=== PATIENT | female | born 1950 | race Caucasian/White ===

== ENCOUNTER 2018-10-31 05:46 | Inpatient (IN) ==
[2018-10-31] MEDS ORDERED: Famotidine 20 MG/2 ML VIAL IVP ONE (06:42)
[2018-10-31] MEDS ORDERED: methylPREDNISolone 125 MG/2 ML VIAL IVP ONE (06:42)
[2018-10-31 06:48] LABS: Basophils # 0.1 K/mcL (0.0-0.2); Eosinophils # 0.1 K/mcL (0.0-0.6); Eosinophils % 1.6 %; Hematocrit 45.9 % (35.3-44.9); Hemoglobin 15.2 g/dL (11.5-15.4); Immature Granulocytes % 0.9 % (0-4); Lymphocytes # 1.9 K/mcL (0.6-4.6); Lymphocytes % 24.4 %; Mean Corpuscular HGB Conc 33.1 g/dL (31.6-35.5); Mean Corpuscular Hemoglobin 26.8 pg (28.0-33.3); Mean Platelet Volume 9.7 fL (9.4-12.4); Monocytes # 0.8 K/mcL (0.0-1.3); Neutrophils # 4.8 K/mcL (1.6-8.9); Platelet Count 263 K/mcL (140-400); Red Blood Count 5.67 M/mcL (3.82-4.97); Segmented Neutrophils % 62.1 %; White Blood Count 7.7 K/mcL (4.3-11.1)
--- NOTE | 2018-10-31 06:51 | Emergency Department Note ---
Disposition Clinical Impression: Chest pain Qualifiers: Chest pain type: unspecified Qualified Code(s): R07.9 - Chest pain, unspecified Disposition: Admitted As Inpatient Condition: Good Time of Disposition: 13:12 General Adult HPI - General Chief complaint: ED Allergic Reaction Stated complaint: Hives, Chest Pressure Time Seen by Provider: 10/31/18 06:23 Source: patient Limitations: no limitations Nursing Notes Reviewed: Yes Vital Signs Reviewed: Yes - History of Present Illness HPI Narrative: Alert and oriented nontoxic appearing 68-year-old female presents with complaint of hives and chest pressure. Patient reports that hives and itching started yesterday around 4 PM she initially noticed them to her posterior head and now spread to axilla and torso. She states that the chest pressure started about an hour prior to arrival and is since resolved. She describes the pressure as a choking sensation to her mid sternal region, she also states nausea at the onset of the chest pressure that lasted about 10-15 minutes. Patient also has known hepatitis A and states that she has been continuously fatigued and has not left the house for the last 4-5 days. States that she has not tried any new foods or had any changes in soaps or detergents. Denies new medications. She denies shortness of breath, diaphoresis, difficulty swallowing, vomiting, diarrhea, fever. Onset (ago): day(s) Pain Scale: 0 Associated symptoms: Reports: malaise, nausea/vomiting, rash. Denies: conf usion, cough, diaphoresis, fever/chills, headaches, loss of appetite, seizure, shortness of breath, syncope, weakness - Related Data Home Medications Medication Instructions Recorded Confirmed Celecoxib [Celebrex] 200 mg PO DAILY 01/08/18 10/31/18 Cetirizine HCl [All Day Allergy] 10 mg PO BID PRN 01/08/18 10/31/18 Empagliflozin [Jardiance] 10 mg PO DAILY 01/08/18 10/31/18 Glimepiride [Amaryl] 2 mg PO DAILY 01/08/18 10/31/18 Insulin ASPART [Novolog Flexpen] 10 units SQ 1200 01/08/18 10/31/18 Insulin ASPART [Novolog Flexpen] 12 units SQ QAM 01/08/18 10/31/18 Insulin ASPART [Novolog Flexpen] 14 units SQ QPM 01/08/18 10/31/18 Insulin Glargine,Hum.rec.anlog 46 unit SQ HS 01/08/18 10/31/18 [Lantus Solostar] Levothyroxine [Synthroid] 75 mcg PO DAILY 01/08/18 10/31/18 Loperamide [Imodium] 2 mg PO DAILY PRN 01/08/18 10/31/18 Omeprazole [PriLOSEC] 20 mg PO DAILY 01/08/18 10/31/18 Oxybutynin Chloride [Ditropan Xl] 10 mg PO DAILY 01/08/18 10/31/18 Ranitidine HCl [Acid Manager Cardiology] 150 mg PO BID PRN 01/08/18 10/31/18 Sertraline [Zoloft] 50 mg PO DAILY 01/08/18 10/31/18 Simvastatin [Zocor] 40 mg PO DAILY 01/08/18 10/31/18 hydroCHLOROthiazide 25 mg PO DAILY 01/08/18 10/31/18 [Hydrochlorothiazide] Allergies Allergy/AdvReac Type Severity Reaction Status Date / Time metformin AdvReac Diarrhea Verified 10/31/18 06:29 Review of Systems: As Per HPI Constitutional: Reports: as per HPI. Denies: fever, chills, weakness, weight change Cardiovascular: Reports: chest pain (Midsternal chest pressure). Denies: palpitations, dyspnea on exertion Respiratory: Denies: cough, dyspnea, wheezes, hemoptysis Gastrointestinal: Denies: abdominal pain, vomiting, diarrhea Musculoskeletal: Denies: back pain, neck pain, joint swelling Integumentary: Reports: as per HPI, pruritus Allergic/Immunologic: Reports: as per HPI, urticaria. Denies: facial swelling, itchy eyes Past Medical History - Past Medical History Attestation: Yes The following information was validated with the patient. Source: patient, nursing notes reviewed Medical history: Reports: asthma, cancer, diabetes, fibromyalgia, GERD, hepatitis, hypertension, thyroid disease Surgical history: Reports: , hysterectomy, orthopedic, other Psychiatric history: Reports: anxiety BRIDGE IRONWORKER history: Reports: no BRIDGE IRONWORKER history - Social History Smoking Status: Never smoker Smokeless Tobacco Status: No Alcohol use: Reports: none Drug use: Reports: none Physical Exam - General Limitations: no limitations General appearance: alert - Head Head exam: atraumatic, normocephalic - Eye Eye exam: Present: normal appearance, EOMI. Absent: scleral icterus, conjunctival injection, periorbital swelling, periorbital tenderness - ENT ENT exam: normal exam, mucous membranes moist - Neck Neck exam: Present: normal inspection, trachea midline. Absent: meningismus - Chest Chest inspection: Present: normal inspection, symmetric chest wall rise - Respiratory Respiratory exam: Present: normal lung sounds bilaterally. Absent: respiratory distress - Cardiovascular Cardiovascular exam: Present: tachycardia, normal heart sounds - Abdominal Exam Abdominal exam: Present: tenderness (Tenderness to right upper quadrant with palpation) Abdominal tenderness: Present: RUQ - Extremities Exam Extremities exam: Present: normal inspection, full ROM. Absent: tenderness - Back Exam Back exam: Absent: tenderness - Neurological Exam Neurological exam: Present: alert, oriented X3 - Psychiatric Psychiatric exam: Present: normal affect, normal mood - Skin Skin exam: Present: warm, dry, intact, normal color Course Course Narrative: 0810: Rounded with patient and discussed her recent symptoms and explained to her that she is in a higher risk category based on her heart score. We di scussed the potential of coming into the hospitalist care and counseling cardiology. Patient agrees to coming in for admission for further testing. 0830: Spoke to Dr. Mcmahon, hospitalist, at this time she states that she would like for hepatitis viral panel to be completed before accepting the patient to hospitalist service. 1300: Dr. Mcmahon excepts patient into hospitalist service at this time. Vital Signs Temperature 98.6 F 10/31/18 06:12 Pulse Rate 110 10/31/18 06:12 Respiratory Rate 20 10/31/18 06:12 Blood Pressure 112/59 10/31/18 06:12 O2 Sat by Pulse Oximetry 96 10/31/18 06:12 Temperature 98.6 F 10/31/18 06:12 Pulse Rate 93 10/31/18 09:02 Respiratory Rate 16 10/31/18 09:02 Blood Pressure 137/62 10/31/18 09:02 O2 Sat by Pulse Oximetry 94 10/31/18 09:02 Oxygen Delivery Oxygen Delivery Room Air Medical Decision Making - Lab Data Lab results reviewed: Yes I reviewed the patient's lab results. Result diagrams: 10/31/18 06:35 10/31/18 06:35 Lab Results 10/31/18 10/31/18 10/31/18 Range/Units 06:35 06:35 06:35 WBC 7.7 (4.3-11.1) K/mcL RBC 5.67 H (3.82-4.97) M/mcL Hgb 15.2 (11.5-15.4) g/dL Hct 45.9 H (35.3-44.9) % MCV 81.0 L (83.0-100.0) fL MCH 26.8 L (28.0-33.3) pg MCHC 33.1 (31.6-35.5) g/dL RDW 14.0 (11.5-14.5) % Plt Count 263 (140-400) K/mcL MPV 9.7 (9.4-12.4) fL Immature Gran % 0.9 (0-4) % Seg Neutrophils % 62.1 % Lymphocytes % 24.4 % Monocytes % 10.0 % Eosinophils % 1.6 % Basophils % 1.0 % Neutrophils # 4.8 (1.6-8.9) K/mcL Lymphocytes # 1.9 (0.6-4.6) K/mcL Monocytes # 0.8 (0.0-1.3) K/mcL Eosinophils # 0.1 (0.0-0.6) K/mcL Basophils # 0.1 (0.0-0.2) K/mcL Reactive Lymphocytes Present A (Not Present) Platelet Estimate Normal (Normal) PT 13.2 H (9.4-12.1) Seconds INR 1.2 APTT 33.2 (26.0-36.0) Seconds Sodium (136-145) mEq/L Potassium (3.5-5.1) mEq/L Chloride (98-107) mEq/L Carbon Dioxide (23-29) mEq/L BUN (8-23) mg/dL Creatinine (0.60-1.20) mg/dL Est GFR ( Amer) (> 60) Est GFR (Non-Af Amer) (> 60) BUN/Creatinine Ratio (6-26) Glucose (70-105) mg/dL Calculated Osmolality (280-300) Calcium (8.6-10.3) mg/dL Total Bilirubin (0.3-1.0) mg/dL Direct Bilirubin (0.0-0.2) mg/dL Indirect Bilirubin (0.0-1.2) mg/dL AST (13-39) Units/L ALT (7-52) Units/L Alkaline Phosphatase (34-104) Units/L Creatine Kinase (30-223) Units/L Troponin I (< 0.04) ng/mL B-Natriuretic Peptide 30 (Less than 100) pg/mL Serum Total Protein (6.4-8.9) g/dL Albumin (3.5-5.7) g/dL Globulin (2.4-3.5) g/dL Albumin/Globulin Ratio (1.1-2.2) Urine Color (Yellow) Urine Clarity (Clear) Urine pH (5.0-8.0) pH Units Ur Specific Rudy (1.010-1.025) Urine Protein (Neg-Trace) mg/dL Urine Glucose (UA) (Normal) mg/dL Urine Ketones (Negative) mg/dL Urine Blood (Negative) Urine Nitrite (Negative) Urine Bilirubin (Negative) Urine Urobilinogen (Normal) mg/dL Ur Leukocyte Esterase (Negative) Ur Culture Indicated? (NO) Hepatitis A IgM Ab (Nonreactive) Hep Bs Antigen (Nonreactive) Hep B Core IgM Ab (Nonreactive) Hepatitis C Ab Screen (Nonreactive) 10/31/18 10/31/18 10/31/18 Range/Units 06:35 06:35 09:34 WBC (4.3-11.1) K/mcL RBC (3.82-4.97) M/mcL Hgb (11.5-15.4) g/dL Hct (35.3-44.9) % MCV (83.0-100.0) fL MCH (28.0-33.3) pg MCHC (31.6-35.5) g/dL RDW (11.5-14.5) % Plt Count (140-400) K/mcL MPV (9.4-12.4) fL Immature Gran % (0-4) % Seg Neutrophils % % Lymphocytes % % Monocytes % % Eosinophils % % Basophils % % Neutrophils # (1.6-8.9) K/mcL Lymphocytes # (0.6-4.6) K/mcL Monocytes # (0.0-1.3) K/mcL Eosinophils # (0.0-0.6) K/mcL Basophils # (0.0-0.2) K/mcL Reactive Lymphocytes (Not Present) Platelet Estimate (Normal) PT (9.4-12.1) Seconds INR APTT (26.0-36.0) Seconds Sodium 136 (136-145) mEq/L Potassium 3.9 (3.5-5.1) mEq/L Chloride 96 L (98-107) mEq/L Carbon Dioxide 29 (23-29) mEq/L BUN 13 (8-23) mg/dL Creatinine 0.73 (0.60-1.20) mg/dL Est GFR ( Amer) > 60 (> 60) Est GFR (Non-Af Amer) > 60 (> 60) BUN/Creatinine Ratio 18 (6-26) Glucose 200 H (70-105) mg/dL Calculated Osmolality 288 (280-300) Calcium 9.5 (8.6-10.3) mg/dL Total Bilirubin 0.6 (0.3-1.0) mg/dL Direct Bilirubin 0.3 H (0.0-0.2) mg/dL Indirect Bilirubin 0.3 (0.0-1.2) mg/dL AST 74 H (13-39) Units/L ALT 176 H (7-52) Units/L Alkaline Phosphatase 150 H (34-104) Units/L Creatine Kinase 26 L (30-223) Units/L Troponin I < 0.03 (< 0.04) ng/mL B-Natriuretic Peptide (Less than 100) pg/mL Serum Total Protein 7.4 (6.4-8.9) g/dL Albumin 3.7 (3.5-5.7) g/dL Globulin 3.7 H (2.4-3.5) g/dL Albumin/Globulin Ratio 1.0 L (1.1-2.2) Urine Color Yellow (Yellow) Urine Clarity Clear (Clear) Urine pH 7.0 (5.0-8.0) pH Units Ur Specific Rudy 1.006 L (1.010-1.025) Urine Protein Negative (Neg-Trace) mg/dL Urine Glucose (UA) 500 H (Normal) mg/dL Urine Ketones Negative (Negative) mg/dL Urine Blood Negative (Negative) Urine Nitrite Negative (Negative) Urine Bilirubin Negative (Negative) Urine Urobilinogen Normal (Normal) mg/dL Ur Leukocyte Esterase Negative (Negative) Ur Culture Indicated? NO (NO) Hepatitis A IgM Ab Reactive H (Nonreactive) Hep Bs Antigen Nonreactive (Nonreactive) Hep B Core IgM Ab Nonreactive (Nonreactive) Hepatitis C Ab Screen Nonreactive (Nonreactive) - Radiology Data Radiology results reviewed: Yes I reviewed the patient's radiology results. - EKG Data EKG #1 EKG attestation: Yes I reviewed and interpreted this EKG. Heart Score - Score History: Moderately Suspicious EKG: Normal Age: Greater than 65 Risk Factors: 1-2 risk factors Troponin: Less than normal limit HEART Score Total: 4
[2018-10-31 06:56] LABS: INR 1.2; Prothrombin Time 13.2 Seconds (9.4-12.1)
[2018-10-31 06:59] LABS: Activated Partial Thrombo Time 33.2 Seconds (26.0-36.0)
[2018-10-31 07:04] LABS: Platelet Estimate Normal (Normal); Reactive Lymphocytes Present (Not Present)
[2018-10-31 07:10] LABS: BUN/Creatinine Ratio 18 (6-26); Blood Urea Nitrogen 13 mg/dL (8-23); Calcium 9.5 mg/dL (8.6-10.3); Carbon Dioxide 29 mEq/L (23-29); Chloride 96 mEq/L (98-107); Glucose 200 mg/dL (70-105); Osmolality,Calculated 288 (280-300); Potassium 3.9 mEq/L (3.5-5.1); Sodium 136 mEq/L (136-145); eGFR For African Americans > 60 (> 60); eGFR For Non-African Americans > 60 (> 60)
[2018-10-31 07:11] LABS: Troponin I < 0.03 ng/mL (< 0.04)
[2018-10-31 07:30] LABS: Alanine Aminotransferase 176 Units/L (7-52); Albumin 3.7 g/dL (3.5-5.7); Alkaline Phosphatase 150 Units/L (34-104); Aspartate Amino Transferase 74 Units/L (13-39); Bilirubin,Direct 0.3 mg/dL (0.0-0.2); Bilirubin,Indirect 0.3 mg/dL (0.0-1.2); Bilirubin,Total 0.6 mg/dL (0.3-1.0); Creatine Kinase 26 Units/L (30-223); Globulin 3.7 g/dL (2.4-3.5); Total Protein 7.4 g/dL (6.4-8.9)
[2018-10-31] MEDS ORDERED: Aspirin 81 MG TAB.CHEW PO STA (07:46)
[2018-10-31 09:46] LABS: Bilirubin,Urine Negative (Negative); Blood,Urine Negative (Negative); Clarity,Urine Clear (Clear); Color,Urine Yellow (Yellow); Glucose,Urine (UA) 500 mg/dL (Normal); Ketones,Urine Negative (Negative); Leukocyte Esterase,Urine Negative (Negative); Nitrite,Urine Negative (Negative); Protein,Urine Negative (Neg-Trace); Specific Gravity,Urine 1.006 (1.010-1.025); Urobilinogen,Urine Normal (Normal)
--- NOTE | 2018-10-31 10:25 | Emergency Department Note ---
Disposition Clinical Impression: Chest pain Qualifiers: Chest pain type: unspecified Qualified Code(s): R07.9 - Chest pain, unspecified Disposition: Admitted As Inpatient Condition: Good Referrals: Mack Covarrubias DO [Primary Care Provider] - Forms: ED Satisfaction Letter Time of Disposition: 10:25 General Adult HPI - General Chief complaint: ED Allergic Reaction Stated complaint: Hives, Chest Pressure Time Seen by Provider: 10/31/18 06:23 Source: patient Limitations: no limitations - History of Present Illness Pain Scale: 0 Associated symptoms: Reports: malaise, nausea/vomiting, rash. Denies: confusion, cough, diaphoresis, fever/chills, headaches, loss of appetite, seizure, shortness of breath, syncope, weakness - Related Data Home Medications Medication Instructions Recorded Confirmed Celecoxib [Celebrex] 200 mg PO DAILY 01/08/18 10/31/18 Cetirizine HCl [All Day Allergy] 10 mg PO BID PRN 01/08/18 10/31/18 Empagliflozin [Jardiance] 10 mg PO DAILY 01/08/18 10/31/18 Glimepiride [Amaryl] 2 mg PO DAILY 01/08/18 10/31/18 Insulin ASPART [Novolog Flexpen] 10 units SQ 1200 01/08/18 10/31/18 Insulin ASPART [Novolog Flexpen] 12 units SQ QAM 01/08/18 10/31/18 Insulin ASPART [Novolog Flexpen] 14 units SQ QPM 01/08/18 10/31/18 Insulin Glargine,Hum.rec.anlog 46 unit SQ HS 01/08/18 10/31/18 [Lantus Solostar] Levothyroxine [Synthroid] 75 mcg PO DAILY 01/08/18 10/31/18 Loperamide [Imodium] 2 mg PO DAILY PRN 01/08/18 10/31/18 Omeprazole [PriLOSEC] 20 mg PO DAILY 01/08/18 10/31/18 Oxybutynin Chloride [Ditropan Xl] 10 mg PO DAILY 01/08/18 10/31/18 Ranitidine HCl [Acid House Mover Helper] 150 mg PO BID PRN 01/08/18 10/31/18 Sertraline [Zoloft] 50 mg PO DAILY 01/08/18 10/31/18 Simvastatin [Zocor] 40 mg PO DAILY 01/08/18 10/31/18 hydroCHLOROthiazide 25 mg PO DAILY 01/08/18 10/31/18 [Hydrochlorothiazide] Allergies Allergy/AdvReac Type Severity Reaction Status Date / Time metformin AdvReac Diarrhea Verified 10/31/18 06:29 Constitutional: Reports: as per HPI. Denies: fever, chills, weakness, weight change Cardiovascular: Reports: chest pain (Midsternal chest pressure). Denies: palpitations, dyspnea on exertion Respiratory: Denies: cough, dyspnea, wheezes, hemoptysis Gastrointestinal: Denies: abdominal pain, vomiting, diarrhea Musculoskeletal: Denies: back pain, neck pain, joint swelling Integumentary: Reports: as per HPI, pruritus Allergic/Immunologic: Reports: as per HPI, urticaria. Denies: facial swelling, itchy eyes Past Medical History - Past Medical History Medical history: Reports: asthma, cancer, diabetes, fibromyalgia, GERD, hepatitis, hypertension, thyroid disease Surgical history: Reports: , hysterectomy, orthopedic, other Psychiatric history: Reports: anxiety CONTRACT ADMINISTRATION MANAGER history: Reports: no CONTRACT ADMINISTRATION MANAGER history - Social History Smoking Status: Never smoker Smokeless Tobacco Status: No Alcohol use: Reports: none Drug use: Reports: none Physical Exam - General Limitations: no limitations General appearance: alert Course Vital Signs Temperature 98.6 F 10/31/18 06:12 Pulse Rate 110 10/31/18 06:12 Respiratory Rate 20 10/31/18 06:12 Blood Pressure 112/59 10/31/18 06:12 O2 Sat by Pulse Oximetry 96 10/31/18 06:12 Temperature 98.6 F 10/31/18 06:12 Pulse Rate 93 10/31/18 09:02 Respiratory Rate 16 10/31/18 09:02 Blood Pressure 137/62 10/31/18 09:02 O2 Sat by Pulse Oximetry 94 10/31/18 09:02 Oxygen Delivery Oxygen Delivery Room Air Medical Decision Making - Lab Data Result diagrams: 10/31/18 06:35 10/31/18 06:35 Lab Results 10/31/18 10/31/18 10/31/18 Range/Units 06:35 06:35 06:35 WBC 7.7 (4.3-11.1) K/mcL RBC 5.67 H (3.82-4.97) M/mcL Hgb 15.2 (11.5-15.4) g/dL Hct 45.9 H (35.3-44.9) % MCV 81.0 L (83.0-100.0) fL MCH 26.8 L (28.0-33.3) pg MCHC 33.1 (31.6-35.5) g/dL RDW 14.0 (11.5-14.5) % Plt Count 263 (140-400) K/mcL MPV 9.7 (9.4-12.4) fL Immature Gran % 0.9 (0-4) % Seg Neutrophils % 62.1 % Lymphocytes % 24.4 % Monocytes % 10.0 % Eosinophils % 1.6 % Basophils % 1.0 % Neutrophils # 4.8 (1.6-8.9) K/mcL Lymphocytes # 1.9 (0.6-4.6) K/mcL Monocytes # 0.8 (0.0-1.3) K/mcL Eosinophils # 0.1 (0.0-0.6) K/mcL Basophils # 0.1 (0.0-0.2) K/mcL Reactive Lymphocytes Present A (Not Present) Platelet Estimate Normal (Normal) PT 13.2 H (9.4-12.1) Seconds INR 1.2 APTT 33.2 (26.0-36.0) Seconds Sodium (136-145) mEq/L Potassium (3.5-5.1) mEq/L Chloride (98-107) mEq/L Carbon Dioxide (23-29) mEq/L BUN (8-23) mg/dL Creatinine (0.60-1.20) mg/dL Est GFR ( Amer) (> 60) Est GFR (Non-Af Amer) (> 60) BUN/Creatinine Ratio (6-26) Glucose (70-105) mg/dL Calculated Osmolality (280-300) Calcium (8.6-10.3) mg/dL Total Bilirubin (0.3-1.0) mg/dL Direct Bilirubin (0.0-0.2) mg/dL Indirect Bilirubin (0.0-1.2) mg/dL AST (13-39) Units/L ALT (7-52) Units/L Alkaline Phosphatase (34-104) Units/L Creatine Kinase (30-223) Units/L Troponin I (< 0.04) ng/mL B-Natriuretic Peptide 30 (Less than 100) pg/mL Serum Total Protein (6.4-8.9) g/dL Albumin (3.5-5.7) g/dL Globulin (2.4-3.5) g/dL Albumin/Globulin Ratio (1.1-2.2) Urine Color (Yellow) Urine Clarity (Clear) Urine pH (5.0-8.0) pH Units Ur Specific Petty (1.010-1.025) Urine Protein (Neg-Trace) mg/dL Urine Glucose (UA) (Normal) mg/dL Urine Ketones (Negative) mg/dL Urine Blood (Negative) Urine Nitrite (Negative) Urine Bilirubin (Negative) Urine Urobilinogen (Normal) mg/dL Ur Leukocyte Esterase (Negative) Ur Culture Indicated? (NO) 10/31/18 10/31/18 Range/Units 06:35 09:34 WBC (4.3-11.1) K/mcL RBC (3.82-4.97) M/mcL Hgb (11.5-15.4) g/dL Hct (35.3-44.9) % MCV (83.0-100.0) fL MCH (28.0-33.3) pg MCHC (31.6-35.5) g/dL RDW (11.5-14.5) % Plt Count (140-400) K/mcL MPV (9.4-12.4) fL Immature Gran % (0-4) % Seg Neutrophils % % Lymphocytes % % Monocytes % % Eosinophils % % Basophils % % Neutrophils # (1.6-8.9) K/mcL Lymphocytes # (0.6-4.6) K/mcL Monocytes # (0.0-1.3) K/mcL Eosinophils # (0.0-0.6) K/mcL Basophils # (0.0-0.2) K/mcL Reactive Lymphocytes (Not Present) Platelet Estimate (Normal) PT (9.4-12.1) Seconds INR APTT (26.0-36.0) Seconds Sodium 136 (136-145) mEq/L Potassium 3.9 (3.5-5.1) mEq/L Chloride 96 L (98-107) mEq/L Carbon Dioxide 29 (23-29) mEq/L BUN 13 (8-23) mg/dL Creatinine 0.73 (0.60-1.20) mg/dL Est GFR ( Amer) > 60 (> 60) Est GFR (Non-Af Amer) > 60 (> 60) BUN/Creatinine Ratio 18 (6-26) Glucose 200 H (70-105) mg/dL Calculated Osmolality 288 (280-300) Calcium 9.5 (8.6-10.3) mg/dL Total Bilirubin 0.6 (0.3-1.0) mg/dL Direct Bilirubin 0.3 H (0.0-0.2) mg/dL Indirect Bilirubin 0.3 (0.0-1.2) mg/dL AST 74 H (13-39) Units/L ALT 176 H (7-52) Units/L Alkaline Phosphatase 150 H (34-104) Units/L Creatine Kinase 26 L (30-223) Units/L Troponin I < 0.03 (< 0.04) ng/mL B-Natriuretic Peptide (Less than 100) pg/mL Serum Total Protein 7.4 (6.4-8.9) g/dL Albumin 3.7 (3.5-5.7) g/dL Globulin 3.7 H (2.4-3.5) g/dL Albumin/Globulin Ratio 1.0 L (1.1-2.2) Urine Color Yellow (Yellow) Urine Clarity Clear (Clear) Urine pH 7.0 (5.0-8.0) pH Units Ur Specific Petty 1.006 L (1.010-1.025) Urine Protein Negative (Neg-Trace) mg/dL Urine Glucose (UA) 500 H (Normal) mg/dL Urine Ketones Negative (Negative) mg/dL Urine Blood Negative (Negative) Urine Nitrite Negative (Negative) Urine Bilirubin Negative (Negative) Urine Urobilinogen Normal (Normal) mg/dL Ur Leukocyte Esterase Negative (Negative) Ur Culture Indicated? NO (NO) Attestation Statement - Attestation Attestation: I reviewed the residents documentation and agree with the ASSISTANT PRODUCTION EDITOR assessment and plan of care. I have personally had face to face time with the patient. (Brief History, Brief Exam, and MDM) I personally supervised and was present for the shearer/critical portions of the following procedures completed by the ASSISTANT PRODUCTION EDITOR: (ekg 68 year old female presents to the ED with complaints of midsternal chest presssure iwth a heaert score of 4 and currently chest pain free with negative tropnoin and non ischemic EKG. SHe is currenlty being treated for hepatitis A and had itching episode with possible hives but this has otherwise cleared up. WE will admit to medicine pending hepatitis panel per request of hospitalist
[2018-10-31 12:02] LABS: Hepatitis B Surface Antigen Nonreactive (Nonreactive)
[2018-10-31 12:31] LABS: Hepatitis B Core IgM Nonreactive (Nonreactive); Hepatitis C Virus Antibody Nonreactive (Nonreactive)
[2018-10-31 13:02] LABS: Hepatitis A Antibody IgM Reactive (Nonreactive)
--- NOTE | 2018-10-31 13:42 | Internal Med History&Physical ---
Date of Encounter: 10/31/18 Time of Encounter: 13:42 Internal Medicine - H&P: HPI History of present illness: Ms. Rogers is a 68 year old female who presented with hives that started 4.0 pm yesterday on her back, upper arm and chest. she also C/O excessive excess sweating especially during the night , she was recently diagnosed with hepatitis A by her primary care physician When she started complaining of fatigue and generalized weakness, She is scheduled to follow-up gastroenterology in 6 weeks. the patient describes the highest as extremely itchy. The patient also complaining of midsternal "shocking" feeling, was no radiation no alleviating factors, benign chest pain, difficulty breathing, nausea, vomiting, but objective multiple nocturnal dyspnea, orthopnea, or progressive worsening of lower extremity edema. I spoke with gastroenterology on Gio woodward that those hives might be an immune complex deposits secondary to hepatitis A, he requested hepatitis panel to be obtained to rule out coinfection. The patient was evaluated by the ER staff EKG with no significant before meals field changes and troponin first set was no significant abnormalities, hepatitis panel revealed no coronary infections and the patient was admitted for further evaluation and management. Gastroenterology will see the patient on Friday a.m. Past Med Surg Social Fam HX - Past Medical History Medical history: asthma, cancer, diabetes, fibromyalgia, GERD, hepatitis, hypertension, thyroid disease Additional medical history: fibromyalgia, sleep apnea, barretts esophagus, hypothyroid, Hep A Psychiatric history: anxiety - Past Surgical History Surgical History: , hysterectomy, orthopedic, other Additional surgical history: colonoscopy - egd - tubal ligation, right/left knee total, left shoulder replacement - Social History Smoking Status: Never smoker Smokeless Tobacco Status: No Alcohol use: none Drug use: none - Family History Mother Living Status: Age at : 70 Cause of : cancer Father Living Status: Age at : 70 Cause of : dysphasia Internal Medicine - H&P: Meds Empagliflozin [Jardiance] 10 mg PO DAILY 01/08/18 [History] Glimepiride [Amaryl] 2 mg PO DAILY 01/08/18 [History] Insulin ASPART [Novolog Flexpen] 10 units SQ 1200 01/08/18 [History] Insulin ASPART [Novolog Flexpen] 12 units SQ QAM 01/08/18 [History] Insulin ASPART [Novolog Flexpen] 14 units SQ QPM 01/08/18 [History] Insulin Glargine,Hum.rec.anlog [Lantus Solostar] 46 unit SQ HS 01/08/18 [History] Levothyroxine [Synthroid] 75 mcg PO DAILY 01/08/18 [History] Loperamide [Imodium] 2 mg PO DAILY PRN 01/08/18 [History] Omeprazole [PriLOSEC] 20 mg PO DAILY 01/08/18 [History] Oxybutynin Chloride [Ditropan Xl] 10 mg PO DAILY 01/08/18 [History] Ranitidine HCl [Acid Manager Strategy & Account] 150 mg PO BID PRN 01/08/18 [History] Sertraline [Zoloft] 50 mg PO DAILY 01/08/18 [History] Simvastatin [Zocor] 40 mg PO DAILY 01/08/18 [History] hydroCHLOROthiazide [Hydrochlorothiazide] 25 mg PO DAILY 01/08/18 [History] DULoxetine [Cymbalta] 30 mg PO DAILY 10/31/18 [History] Tizanidine HCl [Zanaflex] 4 mg PO HS 10/31/18 [History] Alendronate Sodium 70 mg PO MO 11/01/18 [History] Aspirin [Lo-Dose Aspirin EC] 81 mg PO DAILY 11/01/18 [History] Cetirizine HCl [24Hour Allergy] 10 mg PO DAILY PRN 11/01/18 [History] Allergy/AdvReac Type Severity Reaction Status Date / Time metformin AdvReac Diarrhea Verified 11/01/18 11:29 All Systems PM: A 10-system review of systems was performed and is negative for pertinent fin dings except as documented above in the HPI. - Constitutional Vitals: Temp Pulse Resp BP Pulse Ox 98.6 F 93 16 137/62 94 10/31/18 06:12 10/31/18 09:02 10/31/18 09:02 10/31/18 09:02 10/31/18 09:02 General appearance: Present: A&O X 3 Exam: ` Internal Med - H&P Results - Labs CBC & Chem 7: 11/02/18 03:40 11/05/18 03:44 Labs: Short CBC 10/31/18 Range/Units 06:35 WBC 7.7 (4.3-11.1) K/mcL Hgb 15.2 (11.5-15.4) g/dL Hct 45.9 H (35.3-44.9) % Plt Count 263 (140-400) K/mcL Neutrophils # 4.8 (1.6-8.9) K/mcL BMP 10/31/18 06:35 Sodium 136 Potassium 3.9 Chloride 96 L Carbon Dioxide 29 BUN 13 Creatinine 0.73 Glucose 200 H Calcium 9.5 Cardiac Enzymes 10/31/18 Range/Units 06:35 Troponin I < 0.03 (< 0.04) ng/mL Liver Function 10/31/18 Range/Units 06:35 Total Bilirubin 0.6 (0.3-1.0) mg/dL Direct Bilirubin 0.3 H (0.0-0.2) mg/dL AST 74 H (13-39) Units/L ALT 176 H (7-52) Units/L Alkaline Phosphatase 150 H (34-104) Units/L Albumin 3.7 (3.5-5.7) g/dL Urine 10/31/18 Range/Units 09:34 Urine Color Yellow (Yellow) Urine Clarity Clear (Clear) Urine pH 7.0 (5.0-8.0) pH Units Ur Specific [place] 1.006 L (1.010-1.025) Urine Protein Negative (Neg-Trace) mg/dL Urine Glucose (UA) 500 H (Normal) mg/dL - Impressions ITS Impressions Chest X-Ray 10/31/18 06:36 IMPRESSION: No acute cardiopulmonary abnormality. D/ / Elias Henriquez MD / Elias Henriquez MD Interpreting Provider: Elias Henriquez MD - Assessment and Plan (1) Hives Status: Resolved Assessment and plan: the patient was treated with prednisone in the ER , and hives disappeared gradually. (2) Discomfort in chest Status: Acute Assessment and plan: the patient is complaining of intermittent shocking sensation, described it as similar to at this something is stuck in her esophagus, she denies shortness of breath, orthopnea, paroxysmal dyspnea or worsening of lower extremity edema. The patient was evaluated by the ER staff and EKG revealed no significant i schemic changes and troponin was within normal limit, we will trend Cardiac enzymes and repeat ECG. (3) Hepatitis A Status: Acute Assessment and plan: the patient is scheduled for follow-up with gastroenterology in 6 weeks, she is concerned about excessive sweating and fatigue, her liver enzymes mildly elevated, GI was consulted and will see the patient on Friday. we'll continue supportive management Qualifiers: Hepatic coma status: without hepatic coma Qualified Code(s): B15.9 - Hepatitis A without hepatic coma - Time Spent With Patient Total time spent is greater than 50% in coordination of care (as documented) at patient's floor/unit and/or counseling patient:
[2018-10-31] MEDS ORDERED: Ondansetron 4 MG/2 ML VIAL IVP PRN (14:16)
[2018-10-31] MEDS ORDERED: Acetaminophen 325 MG TABLET PO PRN (14:16)
[2018-10-31] MEDS ORDERED: Naloxone 0.4 MG/ML INJ IVP PRN (14:16)
[2018-10-31] MEDS ORDERED: *HR* Dextrose 50 % in Water (Syg) 50 ML SYRINGE IVP PRN (20:33)
[2018-10-31] MEDS ORDERED: D5% in Water 1,000 ML IVC PRN (20:33)
[2018-10-31] MEDS ORDERED: Dextrose Gel 15 GM/37.5 ML TUBE PO PRN ×2 (20:33)
[2018-10-31] MEDS: Insulin LISPRO 300 UNITS/3 ML VIAL SQ SCH (21:05)
[2018-11-01 02:57] LABS: Hematocrit 44.1 % (35.3-44.9); Hemoglobin 14.6 g/dL (11.5-15.4); Mean Corpuscular HGB Conc 33.1 g/dL (31.6-35.5); Mean Corpuscular Hemoglobin 27.4 pg (28.0-33.3); Mean Corpuscular Volume 82.9 fL (83.0-100.0); Mean Platelet Volume 9.5 fL (9.4-12.4); Platelet Count 269 K/mcL (140-400); Red Blood Count 5.32 M/mcL (3.82-4.97); Red Cell Distribution Width 13.9 % (11.5-14.5); White Blood Count 9.3 K/mcL (4.3-11.1)
[2018-11-01 03:04] LABS: INR 1.3; Prothrombin Time 14.4 Seconds (9.4-12.1)
[2018-11-01 03:07] LABS: Activated Partial Thrombo Time 31.7 Seconds (26.0-36.0)
[2018-11-01 03:16] LABS: Alanine Aminotransferase 121 Units/L (7-52); Albumin 3.5 g/dL (3.5-5.7); Alkaline Phosphatase 129 Units/L (34-104); Aspartate Amino Transferase 30 Units/L (13-39); BUN/Creatinine Ratio 22 (6-26); Bilirubin,Total 0.4 mg/dL (0.3-1.0); Blood Urea Nitrogen 19 mg/dL (8-23); Calcium 9.3 mg/dL (8.6-10.3); Carbon Dioxide 31 mEq/L (23-29); Chloride 97 mEq/L (98-107); Chol/HDL Ratio 6.4 (0-4.9); Cholesterol 147 mg/dL (< 200); Globulin 3.5 g/dL (2.4-3.5); Glucose 374 mg/dL (70-105); HDL Cholesterol 23 mg/dL (40-59); LDL Cholesterol,Calculated 98 mg/dL (0-99); Magnesium 2.3 mg/dL (1.6-2.6); Osmolality,Calculated 298 (280-300); Phosphorous 2.6 mg/dL (2.7-4.5); Potassium 4.1 mEq/L (3.5-5.1); Sodium 135 mEq/L (136-145); Triglycerides 131 mg/dL (< 150); eGFR For African Americans > 60 (> 60); eGFR For Non-African Americans > 60 (> 60)
[2018-11-01 03:23] LABS: Troponin I < 0.03 ng/mL (< 0.04)
[2018-11-01] MEDS ORDERED: Loratadine 10 MG TABLET PO PRN (04:05)
[2018-11-01] MEDS ORDERED: Famotidine 20 MG TABLET PO PRN (04:05)
[2018-11-01] MEDS: hydroCHLOROthiazide 25 MG TABLET PO SCH (08:28)
[2018-11-01] MEDS: tiZANidine 4 MG TABLET PO SCH ×4 (08:28→21:44)
[2018-11-01] MEDS: Insulin LISPRO 300 UNITS/3 ML VIAL SQ SCH ×6 (08:29→21:44)
[2018-11-01] MEDS ORDERED: INSULIN ASPART 12 UNIT SQ SCH (09:00)
--- NOTE | 2018-11-01 10:37 | Internal Med Progress Note ---
Hospitalist Progress Note - Encounter Date of Encounter: 11/01/18 Time of Encounter: 10:34 - Subjective Interval History: 68-year-old female with history of hypertension and diabetes presented with skin rash and chest pain. She was recently diagnosed with hepatitis A by PCP and was instructed to follow up with GI. She described heartburn-like chest pain which was worsened by food intake. However due to multiple risk factors for cardiovascular disease, she was admitted for further evaluation. Her rash has improved with treatment of antihistamine medications. Troponin was negative. EKG has no acute ST-T change. Patient seen and examined in the room. She reported intermittent substernal chest pressure/pain, also reported heartburn. Overnight, patient reported absence of fever, chills, or night sweats. She denies history of diarrhea or ye llow skin. She cannot recall sick contact to people with hepatitis A. - Exam Vitals: Temp Pulse Resp BP Pulse Ox 97.9 F 60 16 96/59 96 11/01/18 07:24 11/01/18 07:24 11/01/18 07:24 11/01/18 07:24 11/01/18 07:24 Exam: PHYSICAL EXAMINATION: GENERAL APPEARANCE: The patient is alert, oriented and in no acute distress. HEENT: Head is normocephalic. The sinuses are nontender. Pupils are equal and reactive. The nares are patent. Oropharynx clear without lesions. NECK: Supple without lymphadenopathy. HEART: Regular rate and rhythm. LUNGS: No crackles or wheezes are heard. ABDOMEN: Soft, nontender, nondistended with good bowel sounds heard. Inguinal area is normal. EXTREMITIES: Without cyanosis, clubbing or edema. NEUROLOGICAL: Gross nonfocal. SKIN: Warm and dry without any rash. - Assessment and Plan (1) Hives Current Visit: Yes Status: Acute Assessment and Plan: GI was consulted, hepatitis A related rashes was suspected. Patient received steroids in the ED, she also received antihistamine medications on the floor. Rashes have improved. (2) Discomfort in chest Current Visit: Yes Status: Acute Assessment and Plan: Serial troponin was negative. EKG has no acute ST-T change. Pending stress test and echocardiogram. (3) Hepatitis A Current Visit: Yes Status: Acute Assessment and Plan: Hepatitis panel was positive for hepatitis A IgM. Liver function test including AST/ALT/ALP are trending down. Normal bili currently. Contact isolation. (4) Diabetes mellitus Current Visit: No Status: Chronic Assessment and Plan: Blood glucose significantly elevated. Basal insulin resumed at home dose. Bolus insulin decreased to 6 units 3 times a day. Insulin sliding scale was started. We will adjust insulin regimen based on Accu-Chek results. DVT Prophylaxis: ambulation. - Time Spent with Patient Total time spent is greater than 50% in coordination of care (as documented) at patient's floor/unit and/or counseling patient: Greater than 35 minutes Plan of Care Discussed with: patient Internal Medicine: Result - Labs CBC & Chem 7: 11/01/18 02:32 11/01/18 02:32 Labs: Short CBC 11/01/18 Range/Units 02:32 WBC 9.3 (4.3-11.1) K/mcL Hgb 14.6 (11.5-15.4) g/dL Hct 44.1 (35.3-44.9) % Plt Count 269 (140-400) K/mcL BMP 11/01/18 02:32 Sodium 135 L Potassium 4.1 Chloride 97 L Carbon Dioxide 31 H BUN 19 Creatinine 0.86 Glucose 374 H Calcium 9.3 Cardiac Enzymes 10/31/18 10/31/18 11/01/18 Range/Units 14:38 20:27 02:32 Troponin I < 0.03 < 0.03 < 0.03 (< 0.04) ng/mL Liver Function 11/01/18 Range/Units 02:32 Total Bilirubin 0.4 (0.3-1.0) mg/dL AST 30 (13-39) Units/L ALT 121 H (7-52) Units/L Alkaline Phosphatase 129 H (34-104) Units/L Albumin 3.5 (3.5-5.7) g/dL - ABG Interpretation ABG results: PT/INR, D-dimer PT 14.4 Seconds (9.4-12.1) H 11/01/18 02:32 Consult Discharge Plan - Plan Referrals: Mack Covarrubias DO [Primary Care Provider] - (Appointment has been requested.) __ (3) Hepatitis A Qualifiers: Hepatic coma status: without hepatic coma Qualified Code(s): B15.9 - Hepatitis A without hepatic coma (4) Diabetes mellitus Qualifiers: Diabetes mellitus type: type 2 Diabetes mellitus welfare adviser insulin use: with custodial use Diabetes mellitus complication status: without complication Qualified Code(s): E11.9 - Type 2 diabetes mellitus without complications; Z79.4 - halfway (current) use of insulin
[2018-11-01] MEDS: Empagliflozin [Jardiance] 10 MG PO SCH (12:00)
[2018-11-01] MEDS ORDERED: INSULIN ASPART 10 UNIT SQ SCH (12:00)
[2018-11-01] MEDS ORDERED: INSULIN ASPART 14 UNIT SQ SCH (18:00)
[2018-11-01] MEDS: Insulin DETEMIR 100 UNIT/ML X5UNITS SQ SCH (21:44)
[2018-11-02 04:19] LABS: Hematocrit 44.2 % (35.3-44.9); Hemoglobin 14.4 g/dL (11.5-15.4); Mean Corpuscular HGB Conc 32.6 g/dL (31.6-35.5); Mean Corpuscular Hemoglobin 26.8 pg (28.0-33.3); Mean Corpuscular Volume 82.2 fL (83.0-100.0); Mean Platelet Volume 9.5 fL (9.4-12.4); Platelet Count 221 K/mcL (140-400); Red Blood Count 5.38 M/mcL (3.82-4.97); White Blood Count 6.7 K/mcL (4.3-11.1)
[2018-11-02 04:35] LABS: Albumin 3.3 g/dL (3.5-5.7); Bilirubin,Direct 0.1 mg/dL (0.0-0.2); Bilirubin,Indirect 0.4 mg/dL (0.0-1.2); Bilirubin,Total 0.5 mg/dL (0.3-1.0); Globulin 3.3 g/dL (2.4-3.5); Total Protein 6.6 g/dL (6.4-8.9)
[2018-11-02] MEDS ORDERED: *HR* LORazepam 2 MG/ML VIAL IVP ONE ×3 (06:00→16:57)
--- NOTE | 2018-11-02 06:37 | Electrocardiograph Report ---
[facility] Test Date: 2018-10-31 Pat Name: Salvador Rogers Department: [id number] Room: 3B16 Gender: F Reverse Unit Operator: : [id number] Requested By: Jim Steve Order Number: [id number] Reading MD: Noah Petersen Measurements Intervals [place] Rate: 100 P: 53 WV: 147 QRS: 14 QRSD: 96 T: 24 QT: 342 QTc: 442 Interpretive Statements Sinus tachycardia Multiple ventricular premature complexes Low voltage, precordial leads Electronically Signed On 11-02-2018 6:35:08 EDT by Noah Petersen
[2018-11-02] MEDS: Insulin LISPRO 300 UNITS/3 ML VIAL SQ SCH ×7 (07:56→20:27)
[2018-11-02] MEDS ORDERED: Regadenoson 0.4 MG/5 ML SYRINGE IVP ONE ×2 (08:39→08:41)
--- NOTE | 2018-11-02 09:39 | Internal Med Progress Note ---
Hospitalist Progress Note - Encounter Date of Encounter: 11/02/18 Time of Encounter: 09:36 - Subjective Interval History: 68-year-old female with history of hypertension and diabetes presented with skin rash and chest pain. She was recently diagnosed with hepatitis A by PCP and was instructed to follow up with GI. She described heartburn-like chest pain which was worsened by food intake. However due to multiple risk factors for cardiovascular disease, she was admitted for further evaluation. Her rash has improved with treatment of antihistamine medications. Troponin was negative. EKG has no acute ST-T change. Patient seen and examined in the room. She reported absence of chest pain, shortness of breath, or syncope. - Exam Vitals: Temp Pulse Resp BP Pulse Ox 100.6 F H 111 20 141/80 94 11/02/18 07:21 11/02/18 07:21 11/02/18 07:21 11/02/18 07:21 11/02/18 07:21 Exam: PHYSICAL EXAMINATION: GENERAL APPEARANCE: The patient is alert, oriented and in no acute distress. HEENT: Head is normocephalic. The sinuses are nontender. Pupils are equal and reactive. The nares are patent. Oropharynx clear without lesions. NECK: Supple without lymphadenopathy. HEART: Regular rate and rhythm. LUNGS: No crackles or wheezes are heard. ABDOMEN: Soft, nontender, nondistended with good bowel sounds heard. Inguinal area is normal. EXTREMITIES: Without cyanosis, clubbing or edema. NEUROLOGICAL: Gross nonfocal. SKIN: Warm and dry without any rash. - Assessment and Plan (1) Hives Current Visit: Yes Status: Acute Assessment and Plan: GI was consulted, hepatitis A related rashes was suspected. Patient received steroids in the ED, she also received antihistamine medications on the floor. Rashes have improved. (2) Discomfort in chest Current Visit: Yes Status: Acute Assessment and Plan: Serial troponin was negative. EKG has no acute ST-T change. Pending stress test. Echocardiogram (3) Hepatitis A Current Visit: Yes Status: Acute Assessment and Plan: Hepatitis panel was positive for hepatitis A IgM. AST/ALTgoing up this morning. Normal bili. Hold tylenol for now, may consider hold statins temporarily. Contact isolation. (4) Diabetes mellitus Current Visit: No Status: Chronic Assessment and Plan: 11/01 Blood glucose significantly elevated. Basal insulin resumed at home dose. Bolus insulin decreased to 6 units 3 times a day. Insulin sliding scale was started. We will adjust insulin regimen based on Accu-Chek results. 11/02 BG around 180-200. Bolus insulin increased to 8 units TID. Continue the basal and sliding scale. DVT Prophylaxis: ambulation. - Time Spent with Patient Total time spent is greater than 50% in coordination of care (as documented) at patient's floor/unit and/or counseling patient: Greater than 35 minutes Plan of Care Discussed with: patient Internal Medicine: Result - Labs CBC & Chem 7: 11/02/18 03:40 11/01/18 02:32 Labs: Short CBC 11/02/18 Range/Units 03:40 WBC 6.7 (4.3-11.1) K/mcL Hgb 14.4 (11.5-15.4) g/dL Hct 44.2 (35.3-44.9) % Plt Count 221 (140-400) K/mcL Liver Function 11/02/18 Range/Units 03:40 Total Bilirubin 0.5 (0.3-1.0) mg/dL Direct Bilirubin 0.1 (0.0-0.2) mg/dL AST 403 H (13-39) Units/L ALT 312 H (7-52) Units/L Alkaline Phosphatase 117 H (34-104) Units/L Albumin 3.3 L (3.5-5.7) g/dL - ABG Interpretation ABG results: PT/INR, D-dimer PT 14.4 Seconds (9.4-12.1) H 11/01/18 02:32 - Impressions Impressions Echocardiogram 11/01/18 04:00 Impressions: LVEF 60-65%. Normal LV chamber size, wall thickness and systolic function. Grade 1 left ventricular diastolic dysfunction. Mild aortic regurgitation. No evidence of pulmonary hypertension. Left Ventricular Wall Motion: Rest Echo Findings All wall segments showed normal motion. Findings: Study Quality * Technically sub-optimal due to poor echocardiographic windows. ECG Findings * Sinus bradycardia. Left Ventricle * LVEF 60-65%. * Normal LV chamber size, wall thickness and function. * No segmental dysfunction. * Grade 1 left ventricular diastolic dysfunction. Right Ventricle * Not well visualized. Appears grossly normal in size and function. Left Atrium * Normal left atrial size. Right Atrium * Normal right atrial size. Interatrial Septum * Interatrial septum not well evaluated. Aortic Valve * Aortic valve not well visualized. * Mild aortic regurgitation. * No aortic stenosis. Mitral Valve * Trace mitral regurgitation. * No mitral stenosis. * Normal mitral valve structure. Tricuspid Valve * Trace tricuspid regurgitation. * No tricuspid stenosis. * Normal tricuspid valve structure. * No evidence of pulmonary hypertension. Pulmonic Valve * Pulmonic valve not well visualized. Aorta * Normally sized aortic root. Pericardium * The pericardium appears normal. IVC * Normal IVC dimensions and inspiratory collapse. Pulmonary Artery * Pulmonary artery not well visualized. Consult Discharge Plan - Plan Referrals: Mack Covarrubias DO [Primary Care Provider] - (Appointment has been requested.) (3) Hepatitis A Qualifiers: Hepatic coma status: without hepatic coma Qualified Code(s): B15.9 - Hepatitis A without hepatic coma (4) Diabetes mellitus Qualifiers: Diabetes mellitus type: type 2 Diabetes mellitus correction insulin use: with coagulation operator use Diabetes mellitus complication status: without complication Qualified Code(s): E11.9 - Type 2 diabetes mellitus without complications; Z79.4 - emergency man (current) use of insulin
--- NOTE | 2018-11-02 11:25 | Gastroenterology Consult Note ---
<Cinda Diaz - Last Filed: 11/02/18 12:02> Date of Encounter: 11/02/18 Time of Encounter: 11:12 - Assessment and plan (1) Elevated LFTs Status: Acute Assessment and plan: Presented to the ED complaining of pruritic rashes with fatigue Additionally reports 11-13 pound unintentional weight loss Was recently diagnosed with hepatitis A one week ago AST 403, ALT 312 with alkaline phosphatase 117 LFTs can be elevated secondary to hepatitis A versus autoimmune cause, will order MRCP Continue medical management for a avoid any hepatotoxins such as acetaminophen If MRCP is normal will consider EGD given previous history of Petersen esophagus Further recommendations by Dr. Vu - Time Spent With Patient Total time spent is greater than 50% in coordination of care (as documented) at patient's floor/unit and/or counseling patient: GI History of Present Illness - Data of Consult Requesting Physician: Bella Mcmahon - Consult Narrative History of present illness: Ms. Rogers is a 68 year old female with past medical history of diabetes, fibromyalgia, GERD, hypertension, hypothyroidism, melanoma who presented to the ED on complaining of rashes developing on her back, arm and chest was treated with diaphoresis and pruritus. Reported ongoing fatigue for about 3 months. Due to ongoing fatigue presented to her PCP will evaluated her LFTs and noted to have hepatitis A. She and her are unsure as to the etiology of hepatitis A but reportedly visited [place] 6 weeks ago reports did eat cooked seafood. Denies any episodes of diarrhea the last 6 weeks. Did have episode of diarrhea in January for about 6 weeks. She states prior history of Petersen esophagus diagnosed 10 years ago had a repeat EGD 5 years ago which was reportedly normal. Continues to complain of dysphagia and odontophagia. Reports unintentional loss of 11-13 pounds in the past 2 months due to decrease in appetite. Denies fever, chills, emesis, abdominal pain or diarrhea. Past Med Surg Social Fam HX - Past Medical History Medical history: asthma, cancer, diabetes, fibromyalgia, GERD, hepatitis, hypertension, thyroid disease Additional medical history: fibromyalgia, sleep apnea, barretts esophagus, hypothyroid, Hep A, uterine cancer 2011. Psychiatric history: anxiety - Past Surgical History Surgical History: , hysterectomy, orthopedic, other Additional surgical history: colonoscopy - egd - tubal ligation, right/left knee total, left shoulder replacement - Social History Smoking Status: Never smoker Smokeless Tobacco Status: No Alcohol use: none Drug use: none - Family History Mother Living Status: Age at : 70 Cause of : cancer Father Living Status: Age at : 70 Cause of : dysphasia - Gastrointestinal Gastrointestinal: Present: nausea, other (Dysphagia and odynophagia). Absent: abdominal pain, diarrhea - Constitutional Constitutional: anorexia, weight loss (11-13 pounds) - EENT Nose, mouth and throat: Present: dysphagia. Absent: sore throat - Cardiovascular Cardiovascular ROS: Absent: chest pain, irregular heart rhythm - Respiratory Respiratory IM: Present: dyspnea. Absent: cough - Neurological ROS Neurological GI: Absent: frequent falls, headache(s) - Integumentary Integumentary GI: Present: pruritis, rash - Endocrine Endocrine IM: Present: fatigue - Constitutional Vitals: Temp Pulse Resp BP Pulse Ox 100.6 F H 111 20 141/80 94 11/02/18 07:21 11/02/18 07:21 11/02/18 07:21 11/02/18 07:21 11/02/18 07:21 General appearance: Present: A&O X 3, pleasant, no acute distress - Head Head exam: Present: atraumatic, normocephalic - Eye Eye exam: Present: EOMI, sclera anicteric. Absent: conjunctival injection - ENT ENT exam: Present: mucous membranes moist, normal oropharynx - Neck Neck exam general surgery: Present: full ROM, trachea midline - Respiratory Respiratory exam: Present: CTAB. Absent: stridor, wheezes - Cardiovascular Cardiovascular exam: Present: RRR, +S1, +S2 - GI/Abdominal GI/Abdominal exam: Present: normal bowel sounds, soft. Absent: tenderness - Neurological Exam Neurological exam: Present: alert, oriented X3 - Skin Skin exam: Present: dry, intact Results - Labs CBC & Chem 7: 11/02/18 03:40 11/01/18 02:32 Labs: Entire Visit 11/02/18 11/02/18 03:40 03:40 Hgb 14.4 Hct 44.2 Total Bilirubin 0.5 AST 403 H ALT 312 H - ABG ABG results: PT/INR, D-dimer PT 14.4 Seconds (9.4-12.1) H 11/01/18 02:32 - Impressions Impressions Echocardiogram 11/01/18 04:00 Impressions: LVEF 60-65%. Normal LV chamber size, wall thickness and systolic function. Grade 1 left ventricular diastolic dysfunction. Mild aortic regurgitation. No evidence of pulmonary hypertension. Left Ventricular Wall Motion: Rest Echo Findings All wall segments showed normal motion. Findings: Study Quality * Technically sub-optimal due to poor echocardiographic windows. ECG Findings * Sinus bradycardia. Left Ventricle * LVEF 60-65%. * Normal LV chamber size, wall thickness and function. * No segmental dysfunction. * Grade 1 left ventricular diastolic dysfunction. Right Ventricle * Not well visualized. Appears grossly normal in size and function. Left Atrium * Normal left atrial size. Right Atrium * Normal right atrial size. Interatrial Septum * Interatrial septum not well evaluated. Aortic Valve * Aortic valve not well visualized. * Mild aortic regurgitation. * No aortic stenosis. Mitral Valve * Trace mitral regurgitation. * No mitral stenosis. * Normal mitral valve structure. Tricuspid Valve * Trace tricuspid regurgitation. * No tricuspid stenosis. * Normal tricuspid valve structure. * No evidence of pulmonary hypertension. Pulmonic Valve * Pulmonic valve not well visualized. Aorta * Normally sized aortic root. Pericardium * The pericardium appears normal. IVC * Normal IVC dimensions and inspiratory collapse. Pulmonary Artery * Pulmonary artery not well visualized. Consult Discharge Plan - Plan Instructions: Chest Pain (DC), Viral Hepatitis A (DC), Esophageal Dilation (DC) Referrals: Mack Covarrubias DO [Primary Care Provider] - (Appointment has been requested.) <Nghia Vu - Last Filed: 11/16/18 08:12> Date of Encounter: 11/02/18 - Time Spent With Patient Total time spent is greater than 50% in coordination of care (as documented) at patient's floor/unit and/or counseling patient: GI History of Present Illness - Data of Consult Requesting Physician: Bella Mcmahon - Consult Narrative History of present illness: Ms. Rogers is a 68 year old female - Constitutional Vitals: Temp Pulse Resp BP Pulse Ox 97.8 F 58 16 142/84 96 11/05/18 11:04 11/05/18 11:04 11/05/18 11:04 11/05/18 11:04 11/05/18 11:04 Results - Labs CBC & Chem 7: 11/02/18 03:40 11/05/18 03:44 - ABG ABG results: PT/INR, D-dimer PT 14.4 Seconds (9.4-12.1) H 11/01/18 02:32 - Attending Attestation Patient with acute hepatitis A. Agree with present management. I examined this patient and my medical decision-making was reviewed with the Resident Physician. I agree with the documented findings, disposition and treatment plan as described except to the extent set forth below.
[2018-11-02] MEDS: Empagliflozin [Jardiance] 10 MG PO SCH (11:59)
[2018-11-02] MEDS: tiZANidine 4 MG TABLET PO SCH ×3 (11:59→20:26)
[2018-11-02] MEDS: hydroCHLOROthiazide 25 MG TABLET PO SCH (12:01)
[2018-11-02] MEDS: Insulin DETEMIR 100 UNIT/ML X5UNITS SQ SCH (20:26)
[2018-11-03 05:21] LABS: Alanine Aminotransferase 892 Units/L (7-52); Albumin 3.4 g/dL (3.5-5.7); Albumin/Globulin Ratio 0.9 (1.1-2.2); Alkaline Phosphatase 110 Units/L (34-104); Aspartate Amino Transferase 883 Units/L (13-39); BUN/Creatinine Ratio 24 (6-26); Bilirubin,Total 1.1 mg/dL (0.3-1.0); Blood Urea Nitrogen 20 mg/dL (8-23); Carbon Dioxide 29 mEq/L (23-29); Chloride 91 mEq/L (98-107); Globulin 3.6 g/dL (2.4-3.5); Glucose 288 mg/dL (70-105); Osmolality,Calculated 287 (280-300); Potassium 3.1 mEq/L (3.5-5.1); Sodium 132 mEq/L (136-145); eGFR For African Americans > 60 (> 60); eGFR For Non-African Americans > 60 (> 60)
[2018-11-03] MEDS: 0.9 % Sodium Chloride w KCl 20 MEQ/1,000 ML MLS IVC SCH ×2 (09:51→21:33)
[2018-11-03] MEDS: hydroCHLOROthiazide 25 MG TABLET PO SCH (09:51)
[2018-11-03] MEDS: Empagliflozin [Jardiance] 10 MG PO SCH (09:52)
[2018-11-03] MEDS: tiZANidine 4 MG TABLET PO SCH ×3 (09:52→21:19)
[2018-11-03] MEDS: Insulin LISPRO 300 UNITS/3 ML VIAL SQ SCH ×7 (09:53→21:19)
--- NOTE | 2018-11-03 10:27 | Internal Med Progress Note ---
Hospitalist Progress Note - Encounter Date of Encounter: 11/03/18 Time of Encounter: 10:24 - Subjective Interval History: 68-year-old female with history of hypertension and diabetes presented with skin rash and chest pain. She was recently diagnosed with hepatitis A by PCP and was instructed to follow up with GI. She described heartburn-like chest pain which was worsened by food intake. However due to multiple risk factors for cardiovascular disease, she was admitted for further evaluation. Her rash has improved with treatment of antihistamine medications. Troponin was negative. EKG has no acute ST-T change. Patient seen and examined in the room. She reported absence of chest pain, shortness of breath, or syncope. - Exam Vitals: Temp Pulse Resp BP Pulse Ox 97.9 F 58 16 94/59 97 11/03/18 08:03 11/03/18 08:03 11/03/18 08:03 11/03/18 08:03 11/03/18 08:03 Exam: PHYSICAL EXAMINATION: GENERAL APPEARANCE: The patient is alert, oriented and in no acute distress. HEENT: Head is normocephalic. The sinuses are nontender. Pupils are equal and reactive. The nares are patent. Oropharynx clear without lesions. NECK: Supple without lymphadenopathy. HEART: Regular rate and rhythm. LUNGS: No crackles or wheezes are heard. ABDOMEN: Soft, nontender, nondistended with good bowel sounds heard. Inguinal area is normal. EXTREMITIES: Without cyanosis, clubbing or edema. NEUROLOGICAL: Gross nonfocal. SKIN: Warm and dry without any rash. - Assessment and Plan (1) Hives Current Visit: Yes Status: Resolved Assessment and Plan: GI was consulted, hepatitis A related rashes was suspected. Patient received steroids in the ED, she also received antihistamine medications on the floor. Rashes resolved. (2) Discomfort in chest Current Visit: Yes Status: Acute Assessment and Plan: Serial troponin was negative. EKG has no acute ST-T change. ECHO unremarkable. Stress test results pending. (3) Hepatitis A Current Visit: Yes Status: Acute Assessment and Plan: Hepatitis panel was positive for hepatitis A IgM. Received IV steroid at ED due to rash. AST/ALT going up this morning. Normal bili. Unclear the steroid worsened the Hep A infection. Hold tylenol for now, hold statins. Contact isolation. GI consult, awaiting input. (4) Diabetes mellitus Current Visit: No Status: Chronic Assessment and Plan: 11/01 Blood glucose significantly elevated. Basal insulin resumed at home dose. Bolus insulin decreased to 6 units 3 times a day. Insulin sliding scale was started. We will adjust insulin regimen based on Accu-Chek results. 11/02 BG around 180-200. Bolus insulin increased to 8 units TID. Continue the basal and sliding scale. DVT Prophylaxis: ambulation. - Time Spent with Patient Total time spent is greater than 50% in coordination of care (as documented) at patient's floor/unit and/or counseling patient: Greater than 35 minutes Plan of Care Discussed with: patient Internal Medicine: Result - Labs CBC & Chem 7: 11/02/18 03:40 11/03/18 03:42 Labs: BMP 11/03/18 03:42 Sodium 132 L Potassium 3.1 L Chloride 91 L Carbon Dioxide 29 BUN 20 Creatinine 0.84 Glucose 288 H Calcium 9.0 Liver Function 11/03/18 Range/Units 03:42 Total Bilirubin 1.1 H (0.3-1.0) mg/dL AST 883 H (13-39) Units/L ALT 892 H (7-52) Units/L Alkaline Phosphatase 110 H (34-104) Units/L Albumin 3.4 L (3.5-5.7) g/dL - ABG Interpretation ABG results: PT/INR, D-dimer PT 14.4 Seconds (9.4-12.1) H 11/01/18 02:32 - Impressions Impressions Abdomen MRI 11/02/18 11:19 IMPRESSION: No biliary duct dilation or choledocholithiasis. Hepatic steatosis with mild nonspecific periportal edema. Mild periportal adenopathy, likely reactive. D/ / 11/02/2018 20:16:36 Vernell Patel MD / caleb Interpreting Provider: Vernell Patel MD Consult Discharge Plan - Plan Referrals: Mack Covarrubias DO [Primary Care Provider] - (Appointment has been requested.) (3) Hepatitis A Qualifiers: Hepatic coma status: without hepatic coma Qualified Code(s): B15.9 - Hepatitis A without hepatic coma (4) Diabetes mellitus Qualifiers: Diabetes mellitus type: type 2 Diabetes mellitus intermediate accountant insulin use: with residential use Diabetes mellitus complication status: without complication Qualified Code(s): E11.9 - Type 2 diabetes mellitus without complications; Z79.4 - correction (current) use of insulin
--- NOTE | 2018-11-03 10:39 | Gastroenterology Progress Note ---
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 Vu (2) Dysphagia Status: Acute Assessment and plan: Complained of dysphagia and odynophagia ongoing for over a year Previously had a EGD in 2014 which showed duodenitis Complaining of dysphagia with solids and orals Also eliciting family history of esophageal cancer NPO after midnight for EGD tomorrow Qualifiers: Dysphagia type: oral phase Qualified Code(s): R13.11 - Dysphagia, oral phase - Time Spent With Patient Total time spent is greater than 50% in coordination of care (as documented) at patient's floor/unit and/or counseling patient: - Subjective Interval history: Ms. Rogers was seen at bedside this morning. She was resting comfortably, denied any abdominal pain nausea or emesis. Continues to complain of odynophagia and dysphagia. Denies fever, chills, shortness breath or chest pain. - Constitutional Vitals: Temp Pulse Resp BP Pulse Ox 97.9 F 58 16 94/59 97 11/03/18 08:03 11/03/18 08:03 11/03/18 08:03 11/03/18 08:03 11/03/18 08:03 General appearance: Present: A&O X 3, pleasant, no acute distress - Head Head exam: Present: normal inspection, normocephalic - Eye Eye exam: Present: EOMI, sclera anicteric. Absent: conjunctival injection - ENT ENT exam: Present: mucous membranes moist, normal oropharynx - Neck Neck exam general surgery: Present: full ROM, normal inspection, trachea midline - Respiratory Respiratory exam: Present: CTAB. Absent: rhonchi, wheezes - Cardiovascular Cardiovascular exam: Present: RRR, +S1, +S2 - GI/Abdominal GI/Abdominal exam: Present: normal bowel sounds, soft. Absent: distended, firm - Extremities Exam Extremities exam: Absent: calf tenderness, pedal edema, tenderness Results - Labs CBC & Chem 7: 11/02/18 03:40 11/03/18 03:42 Labs: Last Result 11/03/18 03:42 Calcium 9.0 Entire Visit 11/03/18 03:42 Total Bilirubin 1.1 H AST 883 H ALT 892 H - ABG ABG results: PT/INR, D-dimer PT 14.4 Seconds (9.4-12.1) H 11/01/18 02:32 - Impressions Impressions Abdomen MRI 11/02/18 11:19 IMPRESSION: No biliary duct dilation or choledocholithiasis. Hepatic steatosis with mild nonspecific periportal edema. Mild periportal adenopathy, likely reactive. D/ / 11/02/2018 20:16:36 Vernell Patel MD / bcarter Interpreting Provider: Vernell Patel MD Consult Discharge Plan - Plan Instructions: Chest Pain (DC), Viral Hepatitis A (DC), Esophageal Dilation (DC) Referrals: Mack Covarrubias DO [Primary Care Provider] - (Appointment has been requested.) <Nghia Vu - Last Filed: 11/16/18 07:49> Date of Encounter: 11/03/18 - Time Spent With Patient Total time spent is greater than 50% in coordination of care (as documented) at patient's floor/unit and/or counseling patient: - Constitutional Vitals: Temp Pulse Resp BP Pulse Ox 97.8 F 58 16 142/84 96 11/05/18 11:04 11/05/18 11:04 11/05/18 11:04 11/05/18 11:04 11/05/18 11:04 Results - Labs CBC & Chem 7: 11/02/18 03:40 11/05/18 03:44 - ABG ABG results: PT/INR, D-dimer PT 14.4 Seconds (9.4-12.1) H 11/01/18 02:32 - Attending Attestation Patient admitted with acute hepatitis A which explains the elevated liver enzymes. Continue supportive management. I examined this patient and my medical decision-making was reviewed with the Resident Physician. I agree with the documented findings, disposition and treatment plan as described except to the extent set forth below.
[2018-11-03] MEDS: Insulin DETEMIR 100 UNIT/ML X5UNITS SQ SCH (21:19)
[2018-11-04 05:03] LABS: Albumin/Globulin Ratio 0.9 (1.1-2.2); Alkaline Phosphatase 98 Units/L (34-104); Aspartate Amino Transferase 656 Units/L (13-39); BUN/Creatinine Ratio 24 (6-26); Bilirubin,Total 1.2 mg/dL (0.3-1.0); Blood Urea Nitrogen 15 mg/dL (8-23); Calcium 8.5 mg/dL (8.6-10.3); Carbon Dioxide 25 mEq/L (23-29); Chloride 100 mEq/L (98-107); Globulin 3.3 g/dL (2.4-3.5); Glucose 211 mg/dL (70-105); Osmolality,Calculated 283 (280-300); Potassium 3.9 mEq/L (3.5-5.1); Sodium 133 mEq/L (136-145); Total Protein 6.3 g/dL (6.4-8.9); eGFR For African Americans > 60 (> 60); eGFR For Non-African Americans > 60 (> 60)
[2018-11-04 05:47] LABS: Alanine Aminotransferase 826 Units/L (7-52)
[2018-11-04] MEDS: 0.9 % Sodium Chloride w KCl 20 MEQ/1,000 ML MLS IVC SCH ×3 (06:17→15:54)
[2018-11-04] MEDS: Insulin LISPRO 300 UNITS/3 ML VIAL SQ SCH ×7 (08:20→20:17)
[2018-11-04] MEDS: hydroCHLOROthiazide 25 MG TABLET PO SCH (08:21)
[2018-11-04] MEDS: tiZANidine 4 MG TABLET PO SCH ×3 (08:21→20:17)
[2018-11-04] MEDS: Empagliflozin [Jardiance] 10 MG PO SCH (08:21)
[2018-11-04] MEDS ORDERED: *HR* Propofol 200 MG/20 ML VIAL IVP ONE (12:55)
--- NOTE | 2018-11-04 13:55 | Anesthesia Evaluation PreOp ---
Date of Encounter: 11/04/18 Time of Encounter: 13:45 - Past History Planned Operation: EGD for dysphagia, difficulty swallowing Cardiac History: Other (admitted for evaluation of chest pain. Cardiac work up negative) Pulmonary History: Denies Any Significant HX (never smoker), NANCY Dx (CPAP 9) PLUGGER History: Other (anxiety) Other Medical History: Hepatic (admitted with new onset hives, chest pain. Diagnosed with hepatitis A, immunologic response.), Diabetes Type II, GERD Anesthesia History: No Prior Anesthetic Complications Alcohol Use: none Drug use: none Medications and Allergies Empagliflozin [Jardiance] 10 mg PO DAILY 01/08/18 [History] Glimepiride [Amaryl] 2 mg PO DAILY 01/08/18 [History] Insulin ASPART [Novolog Flexpen] 10 units SQ 1200 01/08/18 [History] Insulin ASPART [Novolog Flexpen] 12 units SQ QAM 01/08/18 [History] Insulin ASPART [Novolog Flexpen] 14 units SQ QPM 01/08/18 [History] Insulin Glargine,Hum.rec.anlog [Lantus Solostar] 46 unit SQ HS 01/08/18 [Hi story] Levothyroxine [Synthroid] 75 mcg PO DAILY 01/08/18 [History] Loperamide [Imodium] 2 mg PO DAILY PRN 01/08/18 [History] Omeprazole [PriLOSEC] 20 mg PO DAILY 01/08/18 [History] Oxybutynin Chloride [Ditropan Xl] 10 mg PO DAILY 01/08/18 [History] Ranitidine HCl [Acid Real Estate Agency Principal] 150 mg PO BID PRN 01/08/18 [History] Sertraline [Zoloft] 50 mg PO DAILY 01/08/18 [History] Simvastatin [Zocor] 40 mg PO DAILY 01/08/18 [History] hydroCHLOROthiazide [Hydrochlorothiazide] 25 mg PO DAILY 01/08/18 [History] DULoxetine [Cymbalta] 30 mg PO DAILY 10/31/18 [History] Tizanidine HCl [Zanaflex] 4 mg PO HS 10/31/18 [History] Alendronate Sodium 70 mg PO MO 11/01/18 [History] Aspirin [Lo-Dose Aspirin EC] 81 mg PO DAILY 11/01/18 [History] Cetirizine HCl [24Hour Allergy] 10 mg PO DAILY PRN 11/01/18 [History] Allergy/AdvReac Type Severity Reaction Status Date / Time metformin AdvReac Diarrhea Verified 11/01/18 11:29 - Meds/Allergy Pre-op Review Medications Reviewed: Yes Allergies Reviewed: Yes Beta Blockers on Current Med List: No Anesthesia Results - Labs 11/02/18 03:40 11/04/18 04:02 - Imaging EKG: report reviewed (sinus rhythm with PVCs, PACs) Anesthesia Exam Selected Entries 11/04/18 12:01 Temperature 98.0 F Pulse Rate 62 Respiratory Rate 18 Blood Pressure 122/63 O2 Sat by Pulse Oximetry 97 Weight: 106 kg BMI 39 NPO (# of Hours): over 8 hours - HEENT Pupil (Motor): Pupils equal Teeth: Prosthesis (upper plate, dental implants) Oral Opening: Greater than 3 - Cardiac Rhythm: Regular Murmur: None - Pulmonary Breath Sounds: bilateral Clear Respiratory Effort: Symmetrical Anesthesia Assess/Plan ASA Score: 3 Level of consciousness: Cooperative Anesthetic Plan: MAC Monitoring Plan: Standard Monitors Recovery Plan: Other (Discussed MAC anesthesia and agreed to proceed.)
--- NOTE | 2018-11-04 14:59 | Gastroenterology Progress Note ---
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 Vu (2) Dysphagia Status: Acute Assessment and plan: Complained of dysphagia and odynophagia ongoing for over a year Previously had a EGD in 2014 which showed duodenitis Complaining of dysphagia with solids and orals Underwent EGD which showed Schatzki's ring, underwent dilation with biopsies taken Recommend soft diet today, increase as tolerated Qualifiers: Dysphagia type: oral phase Qualified Code(s): R13.11 - Dysphagia, oral phase - Time Spent With Patient Total time spent is greater than 50% in coordination of care (as documented) at patient's floor/unit and/or counseling patient: - Subjective Interval history: Ms. Rogers was seen at bedside this morning. She was resting comfortably, denied any abdominal pain nausea or emesis. Continues to complain of odynophagia and dysphagia awaiting EGD today. - Constitutional Vitals: Temp Pulse Resp BP Pulse Ox 99.2 F 70 14 99/66 94 11/04/18 14:35 11/04/18 14:35 11/04/18 14:35 11/04/18 14:35 11/04/18 14:35 General appearance: Present: A&O X 3, pleasant, no acute distress - Head Head exam: Present: atraumatic, normocephalic - Respiratory Respiratory exam: Present: CTAB. Absent: rhonchi, wheezes - Cardiovascular Cardiovascular exam: Present: RRR, +S1, +S2 - GI/Abdominal GI/Abdominal exam: Present: normal bowel sounds, soft. Absent: distended, tenderness - Neurological Exam Neurological exam: Present: alert, oriented X3 - Skin Skin exam: Present: dry, intact Results - Labs CBC & Chem 7: 11/02/18 03:40 11/04/18 04:02 Labs: Last Result 11/04/18 04:02 Calcium 8.5 L Entire Visit 11/04/18 04:02 Total Bilirubin 1.2 H AST 656 H ALT 826 H - ABG ABG results: PT/INR, D-dimer PT 14.4 Seconds (9.4-12.1) H 11/01/18 02:32 Consult Discharge Plan - Plan Instructions: Chest Pain (DC), Viral Hepatitis A (DC), Esophageal Dilation (DC) Referrals: Mack Covarrubias DO [Primary Care Provider] - (Appointment has been requested.) <Nghia Vu - Last Filed: 11/10/18 05:34> Date of Encounter: 11/04/18 - Time Spent With Patient Total time spent is greater than 50% in coordination of care (as documented) at patient's floor/unit and/or counseling patient: - Constitutional Vitals: Temp Pulse Resp BP Pulse Ox 97.8 F 58 16 142/84 96 11/05/18 11:04 11/05/18 11:04 11/05/18 11:04 11/05/18 11:04 11/05/18 11:04 Results - Labs CBC & Chem 7: 11/02/18 03:40 11/05/18 03:44 - ABG ABG results: PT/INR, D-dimer PT 14.4 Seconds (9.4-12.1) H 11/01/18 02:32 - Attending Attestation Patient with ischemic hepatitis. Follow liver enzymes as they should start trending downward. Management of underying etiology in progress. I examined this patient and my medical decision-making was reviewed with the Resident Physician. I agree with the documented findings, disposition and treatment plan as described except to the extent set forth below.
--- NOTE | 2018-11-04 17:03 | Internal Med Progress Note ---
Hospitalist Progress Note - Encounter Date of Encounter: 11/04/18 Time of Encounter: 17:00 - Subjective Interval History: Patient was seen and examined at bedside she did undergo EGD today and tolerated procedure well we will start with soft diet and advance as tolerated anticipate possible discharge in the a.m. - Exam Vitals: Temp Pulse Resp BP Pulse Ox 98.2 F 65 18 127/59 92 11/04/18 16:27 11/04/18 16:27 11/04/18 16:27 11/04/18 16:27 11/04/18 16:27 Exam: PHYSICAL EXAMINATION: GENERAL APPEARANCE: The patient is alert, oriented and in no acute distress. HEENT: Head is normocephalic. The sinuses are nontender. Pupils are equal and reactive. The nares are patent. Oropharynx clear without lesions. NECK: Supple without lymphadenopathy. HEART: Regular rate and rhythm. LUNGS: No crackles or wheezes are heard. ABDOMEN: Soft, nontender, nondistended with good bowel sounds heard. Inguinal area is normal. EXTREMITIES: Without cyanosis, clubbing or edema. NEUROLOGICAL: Gross nonfocal. SKIN: Warm and dry without any rash. - Assessment and Plan (1) Hives Current Visit: Yes Status: Resolved Assessment and Plan: GI was consulted, hepatitis A related rashes was suspected. Patient received steroids in the ED, she also received antihistamine medications on the floor. Rashes resolved. (2) Discomfort in chest Current Visit: Yes Status: Acute Assessment and Plan: Serial troponin was negative. EKG has no acute ST-T change. ECHO unremarkable. Stress test results pending. 11/04 Stress test completed negative for ischemia or infarct Troponins negative 3 EKG with no acute ST-T wave abnormalities Cardiac echo Impressions: LVEF 60-65%. Normal LV chamber size, wall thickness and systolic function. Grade 1 left ventricular diastolic dysfunction. Mild aortic regurgitation. No evidence of pulmonary hypertension. (3) Hepatitis A Current Visit: Yes Status: Acute Assessment and Plan: Hepatitis panel was positive for hepatitis A IgM. Received IV steroid at ED due to rash. AST/ALT going up this morning. Normal bili. Unclear the steroid worsened the Hep A infection. Hold tylenol for now, hold statins. Contact isolation. GI consult, awaiting input. 11/04 Bili continues to remain up ASC ALT trending down slightly Avoid hepatotoxins Autoimmune liver studies pending GI consulted and appreciate recommendations (4) Diabetes mellitus Current Visit: No Status: Chronic Assessment and Plan: 11/01 Blood glucose significantly elevated. Basal insulin resumed at home dose. Bolus insulin decreased to 6 units 3 times a day. Insulin sliding scale was started. We will adjust insulin regimen based on Accu-Chek results. 11/02 BG around 180-200. Bolus insulin increased to 8 units TID. Continue the basal and sliding scale. 11/04 Blood glucose 180-200 Continue with basal and sliding scale (5) Dysphagia Current Visit: Yes Status: Acute Assessment and Plan: Was had a lambda 13 pound unintentional weight loss over the past year complaints of dysphagia and odynophagia ongoing for over a year Underwent EGD which showed Schatzki's ring, underwent dilation with biopsies taken Soft diet today and advance as tolerated - Time Spent with Patient Total time spent is greater than 50% in coordination of care (as documented) at patient's floor/unit and/or counseling patient: Internal Medicine: Result - Labs CBC & Chem 7: 11/02/18 03:40 11/04/18 04:02 Labs: BMP 11/04/18 04:02 Sodium 133 L Potassium 3.9 Chloride 100 Carbon Dioxide 25 BUN 15 Creatinine 0.63 Glucose 211 H Calcium 8.5 L Liver Function 11/04/18 Range/Units 04:02 Total Bilirubin 1.2 H (0.3-1.0) mg/dL AST 656 H (13-39) Units/L ALT 826 H (7-52) Units/L Alkaline Phosphatase 98 (34-104) Units/L Albumin 3.0 L (3.5-5.7) g/dL - ABG Interpretation ABG results: PT/INR, D-dimer PT 14.4 Seconds (9.4-12.1) H 11/01/18 02:32 Consult Discharge Plan - Plan Referrals: Mack Covarrubias DO [Primary Care Provider] - (Appointment has been requested.) (3) Hepatitis A Qualifiers: Hepatic coma status: without hepatic coma Qualified Code(s): B15.9 - Hepatitis A without hepatic coma (4) Diabetes mellitus Qualifiers: Diabetes mellitus type: type 2 Diabetes mellitus equipment operator intermodal yard insulin use: with equipment operator intermodal yard use Diabetes mellitus complication status: without complication Qualified Code(s): E11.9 - Type 2 diabetes mellitus without complications; Z79.4 - intermission coordinator (current) use of insulin (5) Dysphagia Qualifiers: Dysphagia type: oral phase Qualified Code(s): R13.11 - Dysphagia, oral phase
[2018-11-04] MEDS: Insulin DETEMIR 100 UNIT/ML X5UNITS SQ SCH (20:17)
[2018-11-05] MEDS: 0.9 % Sodium Chloride w KCl 20 MEQ/1,000 ML MLS IVC SCH ×2 (00:15→08:22)
[2018-11-05 04:45] LABS: Alanine Aminotransferase 709 Units/L (7-52); Albumin 3.2 g/dL (3.5-5.7); Alkaline Phosphatase 105 Units/L (34-104); Aspartate Amino Transferase 475 Units/L (13-39); BUN/Creatinine Ratio 18 (6-26); Bilirubin,Direct 0.4 mg/dL (0.0-0.2); Bilirubin,Indirect 0.5 mg/dL (0.0-1.2); Bilirubin,Total 0.9 mg/dL (0.3-1.0); Blood Urea Nitrogen 11 mg/dL (8-23); Calcium 8.6 mg/dL (8.6-10.3); Carbon Dioxide 25 mEq/L (23-29); Chloride 108 mEq/L (98-107); Globulin 3.2 g/dL (2.4-3.5); Glucose 131 mg/dL (70-105); Osmolality,Calculated 287 (280-300); Potassium 3.9 mEq/L (3.5-5.1); Sodium 138 mEq/L (136-145); Total Protein 6.4 g/dL (6.4-8.9); eGFR For African Americans > 60 (> 60); eGFR For Non-African Americans > 60 (> 60)
[2018-11-05] MEDS: Insulin LISPRO 300 UNITS/3 ML VIAL SQ SCH ×2 (08:13)
[2018-11-05] MEDS: Empagliflozin [Jardiance] 10 MG PO SCH (08:16)
[2018-11-05] MEDS: hydroCHLOROthiazide 25 MG TABLET PO SCH (08:22)
[2018-11-05] MEDS: tiZANidine 4 MG TABLET PO SCH (08:22)
[2018-11-05 09:40] LABS: ANA IgG by ELISA NONE DETECTED (None Detected); Smooth Muscle Ab Titer IgG <1:20 (<1:20)
[2018-11-05 09:45] LABS: F-Actin (sm muscle) Ab IgG 7 Units (0-19)
[2018-11-05 11:05] VITALS: BP 142/84
--- NOTE | 2018-11-05 11:16 | Gastroenterology Progress Note ---
<Ashley Diaza - Last Filed: 11/05/18 11:08> Date of Encounter: 11/05/18 Time of Encounter: 11:16 - Assessment and plan (1) Elevated LFTs Status: Acute Assessment and plan: Presented to the ED complaining of pruritic rashes with fatigue Additionally reports 11-13 pound unintentional weight loss secondary to poor oral intake due to dysphagia Was recently diagnosed with hepatitis A one week ago with positive IgM Yesterday AST 656 with ALT 826 alkaline phosphatase 98; this morning AST 475 ALT 709 with alkaline phosphatase 105 GUMARO, mitochondrial IgG and smooth muscle antibody within normal limits Elevated LFTs likely secondary to hep A MRCP showed hepatic steatosis, on Zocor Recommended a healthy diet with low-fat Further recommendations by Dr. Vu (2) Dysphagia Status: Acute Assessment and plan: Complained of dysphagia and odynophagia ongoing for over a year Previously had a EGD in 2014 which showed duodenitis At admission complained of dysphasia to solids and liquids which has improved Underwent EGD on 11/04/18 which showed Schatzki's ring, underwent dilation with biopsies taken Recommend soft diet and advance as tolerated Qualifiers: Dysphagia type: oral phase Qualified Code(s): R13.11 - Dysphagia, oral phase - Time Spent With Patient Total time spent is greater than 50% in coordination of care (as documented) at patient's floor/unit and/or counseling patient: - Subjective Interval history: Ms. Rogers was seen at bedside this morning. She was resting comfortably, denied any abdominal pain nausea or emesis. Underwent EGD with dilation yesterday reports some improvement with dysphagia. - Constitutional Vitals: Temp Pulse Resp BP Pulse Ox 97.8 F 58 16 142/84 96 11/05/18 11:04 11/05/18 11:04 11/05/18 11:04 11/05/18 11:04 11/05/18 11:04 General appearance: Present: A&O X 3, pleasant, no acute distress - Head Head exam: Present: atraumatic, normal inspection - Eye Eye exam: Present: EOMI, sclera anicteric. Absent: conjunctival injection - ENT ENT exam: Present: mucous membranes moist, normal oropharynx - Neck Neck exam general surgery: Present: full ROM, trachea midline - Respiratory Respiratory exam: Present: CTAB. Absent: rhonchi, wheezes - Cardiovascular Cardiovascular exam: Present: RRR, +S1, +S2 - GI/Abdominal GI/Abdominal exam: Present: normal bowel sounds, soft. Absent: firm - Psychiatric Psychiatric exam: Present: normal affect, normal mood - Skin Skin exam: Present: dry, intact. Absent: rash Results - Labs CBC & Chem 7: 11/02/18 03:40 11/05/18 03:44 Labs: Last Result 11/05/18 03:44 Calcium 8.6 Entire Visit 11/02/18 11/05/18 15:11 03:44 Total Bilirubin 0.9 AST 475 H ALT 709 H F-Actin IgG Antibody 7 - ABG ABG results: PT/INR, D-dimer PT 14.4 Seconds (9.4-12.1) H 11/01/18 02:32 Consult Discharge Plan - Plan Instructions: Chest Pain (DC), Viral Hepatitis A (DC), Esophageal Dilation (DC) Referrals: Mack Covarrubias DO [Primary Care Provider] - (Appointment has been requested.) <Nghia Vu - Last Filed: 11/10/18 05:29> Date of Encounter: 11/05/18 - Time Spent With Patient Total time spent is greater than 50% in coordination of care (as documented) at patient's floor/unit and/or counseling patient: - Constitutional Vitals: Temp Pulse Resp BP Pulse Ox 97.8 F 58 16 142/84 96 11/05/18 11:04 11/05/18 11:04 11/05/18 11:04 11/05/18 11:04 11/05/18 11:04 Results - Labs CBC & Chem 7: 11/02/18 03:40 11/05/18 03:44 - ABG ABG results: PT/INR, D-dimer PT 14.4 Seconds (9.4-12.1) H 11/01/18 02:32 - Attending Attestation Ms Rogers is admitted to ICU and has elevated liver enzymes secondary to ischemic hepatitis and are trending downward. She has dysphagia and weight loss which would need to be addressed later on when more stable. I examined this patient and my medical decision-making was reviewed with the Resident Physician. I agree with the documented findings, disposition and treatment plan as described except to the extent set forth below.
--- NOTE | 2018-11-05 11:34 | Discharge Summary ---
- NOTES TO OUTPATIENT PROVIDER Notes to Outpatient Provider: Follow-up GI outpatient Orders not resulted at time of discharge: Pending orders 11/01/18 04:00 Urinalysis reflex Microscopic [URIN] AM 0400 11/02/18 15:11 GUMARO IgG VINH rflx IFA Routine F-Actin IgG Reflex Sm Muscle Routine Mitochondrial M2 Antibody, IgG Routine Smooth Muscle Antibody, IgG Routine Tissue Transglutaminase Ab,IgG Routine 11/04/18 14:11 Surgical Pathology [PTH] Routine Date of Encounter: 11/05/18 Time of Encounter: 11:32 - Discharge Diagnosis (1) Hives Priority: Secondary Status: Resolved (2) Discomfort in chest Priority: Primary Status: Acute (3) Hepatitis A Priority: Secondary Status: Acute Qualifiers: Hepatic coma status: without hepatic coma Qualified Code(s): B15.9 - Hepatitis A without hepatic coma (4) Diabetes mellitus Priority: Secondary Status: Chronic Qualifiers: Diabetes mellitus type: type 2 Diabetes mellitus longterm insulin use: with longterm use Diabetes mellitus complication status: without complication Qualified Code(s): E11.9 - Type 2 diabetes mellitus without complications; Z79.4 - skilled nursing (current) use of insulin (5) Dysphagia Priority: Secondary Status: Acute Qualifiers: Dysphagia type: oral phase Qualified Code(s): R13.11 - Dysphagia, oral phase Hospital course: Ms. Rogers is a 68 year old female past medical history of asthma diabetes fibromyalgia GERD hepatitis hypertension thyroid disease. Patient was recently diagnosed by PCP with hepatitis A after experiencing fatigue and generalized weakness.-She began to experience hives and sweating at night-hives were extremely itchy-she also had midsternal shocking feeling in her chest there are no aggravating or relieving factors she presented to the ER with the above complaints GI was consulted and suspect that hives may be immune complex response to the hepatitis A-patient was given Solu-Medrol in the ER which did improve the hives EKG with no significant changes from this area 3 patient did undergo cardiac stress test which was negative for any ischemia or infarct cardiac echo with EF of 60%. Patient did have elevated liver enzymes she was seen by GI-all to a BUN liver studies are pending LFTs did begin to trend down patient did complain of dysphagia she underwent EGD with GI which did show Schatzki's ring, underwent dilation with biopsies taken. She did not have any chest pain during admission. She is able tolerate oral intake at this time she is currently hemodynamically stable patient is advised to follow-up with GI as well as primary care provider and avoid hepatotoxins. Patient verbalizes understanding and she is ready for discharge at this time - Time Spent with Patient Total time spent providing and/or coordinating discharge services: - Discharge Medications Prescriptions: No Action Simvastatin [Zocor] 40 mg PO DAILY Sertraline [Zoloft] 50 mg PO DAILY Ranitidine HCl [Acid Delivery Technician] 150 mg PO BID PRN PRN Reason: SWELLING Oxybutynin Chloride [Ditropan Xl] 10 mg PO DAILY Omeprazole [PriLOSEC] 20 mg PO DAILY Loperamide [Imodium] 2 mg PO DAILY PRN PRN Reason: Diarrhea Levothyroxine [Synthroid] 75 mcg PO DAILY Insulin Glargine,Hum.rec.anlog [Lantus Solostar] 46 unit SQ HS Insulin ASPART [Novolog Flexpen] 12 units SQ QAM Insulin ASPART [Novolog Flexpen] 10 units SQ 1200 Insulin ASPART [Novolog Flexpen] 14 units SQ QPM hydroCHLOROthiazide [Hydrochlorothiazide] 25 mg PO DAILY Glimepiride [Amaryl] 2 mg PO DAILY Empagliflozin [Jardiance] 10 mg PO DAILY Tizanidine HCl [Zanaflex] 4 mg PO HS DULoxetine [Cymbalta] 30 mg PO DAILY Alendronate Sodium 70 mg PO MO Aspirin [Lo-Dose Aspirin EC] 81 mg PO DAILY Cetirizine HCl [24Hour Allergy] 10 mg PO DAILY PRN PRN Reason: Allergy Symptoms Home Medications: Empagliflozin [Jardiance] 10 mg PO DAILY 01/08/18 [History] Glimepiride [Amaryl] 2 mg PO DAILY 01/08/18 [History] Insulin ASPART [Novolog Flexpen] 10 units SQ 1200 01/08/18 [History] Insulin ASPART [Novolog Flexpen] 12 units SQ QAM 01/08/18 [History] Insulin ASPART [Novolog Flexpen] 14 units SQ QPM 01/08/18 [History] Insulin Glargine,Hum.rec.anlog [Lantus Solostar] 46 unit SQ HS 01/08/18 [History] Levothyroxine [Synthroid] 75 mcg PO DAILY 01/08/18 [History] Loperamide [Imodium] 2 mg PO DAILY PRN 01/08/18 [History] Omeprazole [PriLOSEC] 20 mg PO DAILY 01/08/18 [History] Oxybutynin Chloride [Ditropan Xl] 10 mg PO DAILY 01/08/18 [History] Ranitidine HCl [Acid Delivery Technician] 150 mg PO BID PRN 01/08/18 [History] Sertraline [Zoloft] 50 mg PO DAILY 01/08/18 [History] Simvastatin [Zocor] 40 mg PO DAILY 01/08/18 [History] hydroCHLOROthiazide [Hydrochlorothiazide] 25 mg PO DAILY 01/08/18 [History] DULoxetine [Cymbalta] 30 mg PO DAILY 10/31/18 [History] Tizanidine HCl [Zanaflex] 4 mg PO HS 10/31/18 [History] Alendronate Sodium 70 mg PO MO 11/01/18 [History] Aspirin [Lo-Dose Aspirin EC] 81 mg PO DAILY 11/01/18 [History] Cetirizine HCl [24Hour Allergy] 10 mg PO DAILY PRN 11/01/18 [History] Allergies/Adverse Reactions: Allergy/AdvReac Type Severity Reaction Status Date / Time metformin AdvReac Diarrhea Verified 11/01/18 11:29 Date of admission: 11/03/18 15:04 Primary care physician: Mack Covarrubias DO Consults: 10/31/18 13:13 Consult to Gastroenterology [CONS] Routine Consulting Provider: Gastroenterology [facility]rie Reason for Consult: Hepatitis A Time Notified: 13:13 Call Completed: Yes Discharging clinician: Lali Houser Anticipated date of discharge: 11/05/18 - Constitutional Vitals: Temp Pulse Resp BP Pulse Ox 97.8 F 58 16 142/84 96 11/05/18 11:04 11/05/18 11:04 11/05/18 11:04 11/05/18 11:04 11/05/18 11:04 General appearance: Present: A&O X 3 Exam: PHYSICAL EXAMINATION: GENERAL APPEARANCE: The patient is alert, oriented and in no acute distress. HEENT: Head is normocephalic. The sinuses are nontender. Pupils are equal and reactive. The nares are patent. Oropharynx clear without lesions. NECK: Supple without lymphadenopathy. HEART: Regular rate and rhythm. LUNGS: No crackles or wheezes are heard. ABDOMEN: Soft, nontender, nondistended with good bowel sounds heard. Inguinal area is normal. EXTREMITIES: Without cyanosis, clubbing or edema. NEUROLOGICAL: Gross nonfocal. SKIN: Warm and dry without any rash. - Patient Status Disposition: Home, Self-Care Condition: Good Functional capacity at discharge: independent ambulation Overall status at discharge: patient is back to baseline - Discharge Instructions Instructions: Chest Pain (DC), Chronic Dysphagia (DC) Follow Up With: Mack Covarrubias DO [Primary Care Provider] - (Appointment has been requested.) - Diet and Activity Activity: increase activity as tolerated Diet: advance to your usual diet
[2018-11-05 14:58] LABS: Tissue Transglutaminase IgG 1 U/mL (0-5)
== END 2018-11-05 12:24 | disposition home or self-care (01) | DRG 443 ==
LOC: EMEROOARM 05:46 → 3BNU 05:46
PROVIDERS: ADMIT Internal Medicine Nephrology; ATTEND Internal Medicine Nephrology
PROC: ENDOORB (2018-11-04 13:30)

== ENCOUNTER 2020-12-28 14:22 | Observation (INO) ==
[2020-12-28] MEDS ORDERED: Nitroglycerin 0.4 MG TAB.SUBL SL PRN (14:43)
[2020-12-28 14:55] LABS: Basophils # 0.1 K/mcL (0.0-0.2); Basophils % 0.8 %; Eosinophils # 0.2 K/mcL (0.0-0.6); Eosinophils % 1.6 %; Hematocrit 52.3 % (35.3-44.9); Hemoglobin 17.3 g/dL (11.5-15.4); Immature Granulocytes % 0.7 % (0-4); Lymphocytes # 1.7 K/mcL (0.6-4.6); Lymphocytes % 16.2 %; Mean Corpuscular HGB Conc 33.1 g/dL (31.6-35.5); Mean Corpuscular Hemoglobin 27.2 pg (28.0-33.3); Mean Corpuscular Volume 82.4 fL (83.0-100.0); Mean Platelet Volume 8.9 fL (9.4-12.4); Monocytes # 0.5 K/mcL (0.0-1.3); Monocytes % 4.7 %; Neutrophils # 8.1 K/mcL (1.6-8.9); Platelet Count 313 K/mcL (140-400); Red Blood Count 6.35 M/mcL (3.82-4.97); Red Cell Distribution Width 13.9 % (11.5-14.5); White Blood Count 10.7 K/mcL (4.3-11.1)
[2020-12-28 15:08] LABS: INR 1.1; Prothrombin Time 11.7 Seconds (9.4-12.1)
[2020-12-28 15:11] LABS: Activated Partial Thrombo Time 34.1 Seconds (26.0-36.0)
[2020-12-28 15:16] LABS: BUN/Creatinine Ratio 21 (6-26); Blood Urea Nitrogen 17 mg/dL (8-23); Calcium 9.9 mg/dL (8.6-10.3); Carbon Dioxide 29 mEq/L (23-29); Chloride 99 mEq/L (98-107); Glucose 153 mg/dL (70-105); Osmolality,Calculated 291 (280-300); Potassium 3.5 mEq/L (3.5-5.1); Sodium 138 mEq/L (136-145); Troponin I < 0.03 ng/mL (< 0.04); eGFR For African Americans > 60 (> 60); eGFR For Non-African Americans > 60 (> 60)
[2020-12-28] MEDS ORDERED: Isovue-370 500 ML BOTTLE IVP ONE (15:21)
[2020-12-28] MEDS ORDERED: Morphine Sulfate 2 MG/ML SYRINGE IVP ONE (15:37)
[2020-12-28] MEDS ORDERED: *HR* LORazepam 2 MG/ML VIAL IVP ONE (15:38)
[2020-12-28] MEDS ORDERED: Pantoprazole 40 MG VIAL IVP ONE (16:36)
[2020-12-28] MEDS ORDERED: GI Cocktail 40 ML EACH PO ONE (16:36)
[2020-12-28] MEDS ORDERED: Famotidine 20 MG/2 ML VIAL IVP ONE (16:36)
[2020-12-28] MEDS ORDERED: Ondansetron 4 MG/2 ML VIAL IVP PRN (16:56)
[2020-12-28] MEDS ORDERED: Naloxone 0.4 MG/ML INJ IVP PRN (16:56)
[2020-12-28] MEDS ORDERED: Acetaminophen 325 MG TABLET PO PRN (16:56)
[2020-12-28] MEDS ORDERED: D5% in Water 1,000 ML IVC PRN (19:00)
[2020-12-28] MEDS ORDERED: *HR* Dextrose 50 % in Water (Syg) 50 ML SYRINGE IVP PRN (19:00)
[2020-12-28] MEDS ORDERED: Dextrose Gel 15 GM/37.5 ML TUBE PO PRN ×2 (19:00)
[2020-12-28] MEDS ORDERED: Insulin LISPRO 300 UNITS/3 ML VIAL SUBQ SCH (21:00)
[2020-12-28] MEDS: Insulin LISPRO 300 UNITS/3 ML VIAL SUBQ SCH (21:43)
[2020-12-28] MEDS ORDERED: tiZANidine 4 MG TABLET PO PRN (22:39)
[2020-12-29 03:25] LABS: Basophils # 0.1 K/mcL (0.0-0.2); Basophils % 0.8 %; Eosinophils % 0.4 %; Immature Granulocytes % 0.7 % (0-4); Lymphocytes # 2.1 K/mcL (0.6-4.6); Lymphocytes % 19.2 %; Mean Corpuscular HGB Conc 32.1 g/dL (31.6-35.5); Mean Corpuscular Hemoglobin 26.5 pg (28.0-33.3); Mean Corpuscular Volume 82.5 fL (83.0-100.0); Mean Platelet Volume 9.4 fL (9.4-12.4); Monocytes # 0.9 K/mcL (0.0-1.3); Monocytes % 8.5 %; Neutrophils # 7.6 K/mcL (1.6-8.9); Platelet Count 285 K/mcL (140-400); Red Blood Count 5.82 M/mcL (3.82-4.97); Segmented Neutrophils % 70.4 %; White Blood Count 10.8 K/mcL (4.3-11.1)
[2020-12-29 03:26] LABS: Hemoglobin 15.4 g/dL (11.5-15.4)
[2020-12-29] MEDS ORDERED: *HR* LORazepam 2 MG/ML VIAL IVP PRN (03:30)
[2020-12-29 03:41] LABS: BUN/Creatinine Ratio 20 (6-26); Blood Urea Nitrogen 17 mg/dL (8-23); Calcium 9.7 mg/dL (8.6-10.3); Carbon Dioxide 29 mEq/L (23-29); Chloride 98 mEq/L (98-107); Glucose 230 mg/dL (70-105); Magnesium 2.4 mg/dL (1.6-2.6); Osmolality,Calculated 289 (280-300); Potassium 3.5 mEq/L (3.5-5.1); Sodium 135 mEq/L (136-145); eGFR For African Americans > 60 (> 60); eGFR For Non-African Americans > 60 (> 60)
[2020-12-29] MEDS ORDERED: Regadenoson 0.4 MG/5 ML SYRINGE IVP ONE (06:38)
[2020-12-29] MEDS: Insulin LISPRO 300 UNITS/3 ML VIAL SUBQ SCH ×2 (07:53→12:54)
[2020-12-29 11:02] LABS: Estimated Average Glucose 226 mg/dl; Hemoglobin A1C 9.5 %
[2020-12-29 11:48] VITALS: BP 116/70; PULSE 80; TEMP 98.5; O2SAT 92
== END 2020-12-29 16:00 | disposition home or self-care (01) ==
LOC: 3BNU 14:22 → EMEROOARM 14:22 → SUATTDRO 19:12 → 3BNU 20:51
PROVIDERS: ADMIT Family Medicine; ATTEND Internal Medicine